=== PATIENT | male | born 1935 | race Caucasian/White ===

== ENCOUNTER 2018-04-06 17:32 | Inpatient (IN) | payer MEDICARE ==
[~2018-04-06] VITALS: Ht 182.9 cm; Wt 86.3 kg
[2018-04-06] MEDS ORDERED: IV NORMAL SALINE 1000ML BAG 1,000 ML IV ONE ×2 (17:45)
[2018-04-06 17:52] LABS: BASO % 1 % (0-3); EOS # 0.1 x10^3/uL (0.0-0.7); EOS % 2 % (0-3); HEMATOCRIT 38.3 % (39.0-53.0); HEMOGLOBIN 13.3 g/dL (13.0-17.5); LYMPH # 0.9 x10^3/uL (1.0-4.8); LYMPH % 24 % (24-48); MEAN CORPUSCULAR HEMOGLOBIN 32 pg (25-35); MEAN CORPUSCULAR HGB CONC 35 g/dL (31-37); MEAN CORPUSCULAR VOLUME 93 fL (79-100); MONO # 0.3 x10^3/uL (0.0-1.1); MONO % 8 % (0-9); NEUT # 2.5 x10^3uL (1.8-7.7); NEUT % 66 % (31-73); PLATELET COUNT 103 x10^3/uL (140-400); RED BLOOD COUNT 4.12 x10^6/uL (4.30-5.70); RED CELL DISTRIBUTION WIDTH 14.6 % (11.5-14.5); WHITE BLOOD COUNT 3.8 x10^3/uL (4.0-11.0)
--- NOTE | 2018-04-06 17:58 | PHYS DOC ---
Adult General Chief Complaint Chief Complaint: HEAT EXPOSURE HPI HPI Patient is a 83 year old male who brought in by EMS because of altered level of consciousness. Patient is a resident of assisted living home and found unresponsive outside with a temperature of 105 with outside temperature of more than 95 decrease. According to assisting living home staff patient was seen 2 hours prior to finding unresponsive. EMS reported that patient had temperature of 104 and had temperature of 101.8 rectally at arrival to ER. Patient was unresponsive per EMS but was able to open his eyes and follows the commands at arrival to ER but unable to talk and give history. Review of Systems Review of Systems Unable to obtain because of medical condition Current Medications Current Medications Current Medications Medications (Trade) Dose Ordered Sig/Cole Start Time Stop Time Status Last Admin Dose Admin Sodium Chloride 1,000 ml @ 1,000 mls/hr 1X ONCE 04/06/18 17:45 04/06/18 18:44 DC 04/06/18 18:42 1,000 MLS/HR Allergies Allergies Allergies Coded Allergies Type Severity Reaction Last Updated Verified No Known Drug Allergies 04/06/18 No Physical Exam Physical Exam Constitutional: Only responded to verbal stimuli, unable to talk, moderate distress, erythematous face and upper chest, febrile HENT: Normocephalic, atraumatic Eyes: Conjunctiva normal, no discharge. [] Neck: Supple Cardiovascular: Tachycardia, no murmur [] Lungs & Thorax: Bilateral breath sounds clear to auscultation [] Abdomen: Bowel sounds normal, soft, no masses, no pulsatile masses. [] Skin: Warm, facial and upper chest erythema with first degree burn Back: No deformity] Extremities: moves all extremities Neurologic: Responded to verbal stimuli only, unable to do neuro exam Psychologic: Unable to obtain Current Patient Data Vital Signs Vital Signs Date Time Temp Pulse Resp B/P (MAP) Pulse Ox O2 Delivery O2 Flow Rate FiO2 04/06/18 18:02 100.2 100.2 04/06/18 17:32 110 28 157/76 (103) 90 Room Air Lab Values Laboratory Tests Test 04/06/18 17:38 04/06/18 17:50 04/06/18 18:02 White Blood Count 3.8 x10^3/uL (4.0-11.0) L Red Blood Count 4.12 x10^6/uL (4.30-5.70) L Hemoglobin 13.3 g/dL (13.0-17.5) Hematocrit 38.3 % (39.0-53.0) L Mean Corpuscular Volume 93 fL (79-100) Mean Corpuscular Hemoglobin 32 pg (25-35) Mean Corpuscular Hemoglobin Concent 35 g/dL (31-37) Red Cell Distribution Width 14.6 % (11.5-14.5) H Platelet Count 103 x10^3/uL (140-400) L Neutrophils (%) (Auto) 66 % (31-73) Lymphocytes (%) (Auto) 24 % (24-48) Monocytes (%) (Auto) 8 % (0-9) Eosinophils (%) (Auto) 2 % (0-3) Basophils (%) (Auto) 1 % (0-3) Neutrophils # (Auto) 2.5 x10^3uL (1.8-7.7) Lymphocytes # (Auto) 0.9 x10^3/uL (1.0-4.8) L Monocytes # (Auto) 0.3 x10^3/uL (0.0-1.1) Eosinophils # (Auto) 0.1 x10^3/uL (0.0-0.7) Basophils # (Auto) 0.0 x10^3/uL (0.0-0.2) Prothrombin Time 15.6 SEC (11.7-14.0) H Prothrombin Time INR 1.3 (0.8-1.1) H PTT 31 SEC (24-38) Sodium Level 143 mmol/L (136-145) Potassium Level 3.4 mmol/L (3.5-5.1) L Chloride Level 108 mmol/L (98-107) H Carbon Dioxide Level 27 mmol/L (21-32) Anion Gap 8 (6-14) Blood Urea Nitrogen 13 mg/dL (8-26) Creatinine 1.4 mg/dL (0.7-1.3) H Estimated GFR (Cockcroft-Gault) 48.5 BUN/Creatinine Ratio 9 (6-20) Glucose Level 159 mg/dL (70-99) H Lactic Acid Level 2.9 mmol/L (0.4-2.0) H Calcium Level 9.9 mg/dL (8.5-10.1) Magnesium Level 1.8 mg/dL (1.8-2.4) Total Bilirubin 0.9 mg/dL (0.2-1.0) Aspartate Amino Transferase (AST) 70 U/L (15-37) H Alanine Aminotransferase (ALT) 36 U/L (16-63) Alkaline Phosphatase 125 U/L (46-116) H Creatine Kinase 230 U/L (39-308) Creatine Kinase MB (Mass) 0.7 ng/mL (0.0-3.6) Creatine Kinase MB Relative Index 0.3 % (0-4) Troponin I Quantitative 0.041 ng/mL (0.000-0.055) UK-Hlb-N-Type Natriuretic Peptide 109 pg/mL (0-449) Total Protein 6.5 g/dL (6.4-8.2) Albumin 2.8 g/dL (3.4-5.0) L Albumin/Globulin Ratio 0.8 (1.0-1.7) L Lipase 146 U/L (73-393) Ammonia 165 mcmol/L (11-34) H Urine Collection Type Unknown Urine Color Aleida Urine Clarity Cloudy Urine pH 6.0 Urine Specific [place] 1.025 Urine Protein 30 mg/dL (NEG-TRACE) Urine Glucose (UA) Negative mg/dL (NEG) Urine Ketones (Stick) Trace mg/dL (NEG) Urine Blood Large (NEG) Urine Nitrite Negative (NEG) Urine Bilirubin Negative (NEG) Urine Urobilinogen Dipstick 2.0 mg/dL (0.2 mg/dL) Urine Leukocyte Esterase Small (NEG) Urine RBC Tntc /HPF (0-2) Urine WBC 1-4 /HPF (0-4) Urine Squamous Epithelial Cells Occ /LPF Urine Bacteria 0 /HPF (0-FEW) Urine Hyaline Casts Moderate /HPF Urine Mucus Marked /LPF Urine Opiates Screen Neg (NEG) Urine Methadone Screen Neg (NEG) Urine Barbiturates Neg (NEG) Urine Phencyclidine Screen Neg (NEG) Urine Amphetamine/Methamphetamine Neg (NEG) Urine Benzodiazepines Screen Neg (NEG) Urine Cocaine Screen Neg (NEG) Urine Cannabinoids Screen Neg (NEG) Urine Ethyl Alcohol Neg (NEG) Laboratory Tests 04/06/18 17:38 Laboratory Tests 04/06/18 17:38 EKG EKG EKG interpreted by me. EKG at 1735 showed sinus tachycardia at rate of 107, left axis deviation, left anterior fascicular block, nonspecific intraventricular block, LVH, no acute ST and T-wave abnormalities[] Radiology/Procedures Radiology/Procedures [] Impressions: Head and cervical spine CTs demonstrate no acute abnormality. Review portable chest x-ray demonstrates no acute process. Course & Med Decision Making Course & Med Decision Making Pertinent Labs and Imaging studies are pending. Patient's care transferred to Dr. Perez at 1800. Dragon Disclaimer Dragon Disclaimer This electronic medical record was generated, in whole or in part, using a voice recognition dictation system. Departure Departure Impression: Primary Impression: Heat exhaustion Disposition: ADMITTED INPATIENT Admitting Physician: Xie. Smiley Condition: IMPROVED Problem Qualifiers Primary Impression: Heat exhaustion Encounter type: initial encounter Qualified Codes: T67.5XXA - Heat exhaustion, unspecified, initial encounter ROYA SHERWOOD MD Apr 06, 2018 17:58 SALIMA PEREZ Jr., DO Apr 06, 2018 19:20
[2018-04-06 18:01] LABS: PROTHROMBIN TIME PATIENT 15.6 SEC (11.7-14.0)
[2018-04-06 18:03] LABS: CALCIUM 9.9 mg/dL (8.5-10.1); CREATININE 1.4 mg/dL (0.7-1.3); GFR 48.5; POTASSIUM 3.4 mmol/L (3.5-5.1)
[2018-04-06 18:09] LABS: ALBUMIN 2.8 g/dL (3.4-5.0); ALBUMIN/GLOBULIN RATIO 0.8 (1.0-1.7); MAGNESIUM 1.8 mg/dL (1.8-2.4); TOTAL BILIRUBIN 0.9 mg/dL (0.2-1.0); TOTAL PROTEIN 6.5 g/dL (6.4-8.2)
[2018-04-06 18:11] LABS: BILIRUBIN,URINE NEGATIVE (NEG); CLARITY,URINE CLOUDY; NITRITE,URINE NEGATIVE (NEG); PROTEIN,URINE 30 mg/dL (NEG-TRACE)
[2018-04-06 18:22] LABS: AMPHETAMINE/METHAMPHETAMINE NEG (NEG); BARBITURATES NEG (NEG); BENZODIAZEPINES NEG (NEG); CANNABINOIDS NEG (NEG); COCAINE NEG (NEG); METHADONE NEG (NEG); OPIATES NEG (NEG); PHENCYCLIDINE NEG (NEG)
[2018-04-06 18:25] LABS: COLOR,URINE AMBER
--- NOTE | 2018-04-06 18:28 | EKG ---
[facility] [address] [place] [address] Test Date: 2018-04-06 Test Time: 17:35:33 Pat Name: PAT SOLO Department: Room: Gender: Male [employer] Technician: : [id number] Requested By: ROYA SHERWOOD Order Number: [id number] Reading MD: Hugo Bateman MD Measurements Intervals [place] Rate: 107 P: -128 NE: 198 QRS: -81 QRSD: 142 T: 71 QT: 350 QTc: 473 Interpretive Statements PROBABLE SINUS TACHYCARDIA LAFB RBBB Electronically Signed On 04-16-2018 11:13:50 CDT by Hugo Bateman MD
[2018-04-06 18:31] LABS: BACTERIA,URINE 0 /HPF (0-FEW); HYALINE CASTS, URINE MODERATE /HPF; RBC,URINE TNTC /HPF (0-2); SQUAMOUS EPITHELIAL CELL,UR OCC /LPF
--- NOTE | 2018-04-06 18:34 | RAD ---
CT scan of the head without contrast 04/06/2018 Clinical History: Patient found outside of care facility. Dementia. Altered level of consciousness. Technique: Unenhanced, contiguous, 5 mm axial sections were obtained through the head. One or more of the following individualized dose reduction techniques were utilized for this study: 1. Automated exposure control. 2. Adjustment of the mA and/or kV according to patient size. 3. Use of iterative reconstruction technique. Findings: No previous studies are available for comparison. There is generalized parenchymal atrophy. Areas of decreased attenuation are seen within the periventricular and subcortical white matter of both cerebral hemispheres consistent with areas of small vessel ischemic disease. No acute parenchymal abnormality is seen. No extra-axial fluid collection is noted. No skull fracture is seen. Impression: No acute intracranial abnormality is seen. CT scan of the cervical spine without contrast 04/06/2018 Clinical history: Neck injury. Technique: Unenhanced, contiguous, 0.625 mm axial sections were obtained through the cervical spine. Axial, coronal and sagittal reconstructed images were obtained. One or more of the following individualized dose reduction techniques were utilized for this study: 1. Automated exposure control. 2. Adjustment of the mA and/or kV according to patient size. 3. Use of iterative reconstruction technique. Findings: Sagittal and coronal reconstructed images demonstrate diffuse osteopenia of the visualized bony structures. Minimal lateral curvature of the cervical spine is seen convex to the left. There is straightening of the normal cervical lordosis. Degenerative changes consisting of marked disc space narrowing, vertebral endplate sclerosis and mild to moderate anterior and posterior vertebral body osteophyte formation are seen throughout the majority of the cervical disc spaces. Atherosclerotic calcifications are seen in the region of the carotid bifurcations. No fracture or subluxation of the cervical vertebra is seen. Degenerative changes are seen involving the uncovertebral and facet joints throughout the cervical disc spaces. Impression: No fracture or subluxation of the cervical vertebra is identified. Electronically signed by: Julien Veloz MD (04/06/2018 6:30 PM) [facility]
--- NOTE | 2018-04-06 20:08 | RAD ---
AP portable chest radiograph 04/06/2018 Clinical History: Heat exposure. An AP erect portable digital radiograph of the chest was obtained. No previous studies are available for comparison. The cardiac silhouette is borderline enlarged. There is left ventricular prominence. The thoracic aorta is mildly tortuous. No acute pulmonary infiltrate is seen. No pleural effusion or pneumothorax is noted. Degenerative changes are seen involving the thoracic spine and both shoulders. IMPRESSION: No acute abnormality is seen. Electronically signed by: Julien Veloz MD (04/06/2018 8:04 PM) [facility]
[2018-04-06] MEDS ORDERED: ACETAMINOPHEN 325 MG TABLET. PO PRN (20:45)
[2018-04-06] MEDS ORDERED: ONDANSETRON PF 4 MG/2 ML VIAL. IV PRN (20:45)
[2018-04-06 21:30] VITALS: BP 148/70
[2018-04-06] MEDS: IV NORMAL SALINE 1000ML BAG 1,000 ML IV SCH (23:12)
[2018-04-06 23:53] VITALS: BP 126/67
[2018-04-07] MEDS ORDERED: FERR325T14 PO (00:07)
[2018-04-07] MEDS ORDERED: DOCU100C28 PO (00:07)
[2018-04-07] MEDS ORDERED: ATOR40TA59 PO (00:07)
[2018-04-07] MEDS ORDERED: MULT-114 PO (00:07)
[2018-04-07] MEDS ORDERED: BISA-42 PO (00:07)
[2018-04-07] MEDS ORDERED: CYAN10005 PO (00:07)
[2018-04-07] MEDS ORDERED: CHOL10003 PO (00:07)
[2018-04-07] MEDS ORDERED: OMEP20CA9 PO (00:07)
[2018-04-07] MEDS ORDERED: CALC-584 PO (00:07)
[2018-04-07] MEDS ORDERED: ASPI-612 PO (00:07)
[2018-04-07] MEDS ORDERED: MAGN250T9 PO (00:07)
[2018-04-07] MEDS ORDERED: POLY17PO29 PO (00:07)
[2018-04-07] MEDS ORDERED: KRIL1CAP31 PO (00:07)
[2018-04-07] MEDS ORDERED: SERT25TA PO (00:34)
[2018-04-07] MEDS ORDERED: MEMA28CA PO (00:34)
[2018-04-07] MEDS ORDERED: [UNRECOGNIZED DRUG - CODE] TP (00:34)
[2018-04-07] MEDS ORDERED: MIRT15TA PO (00:34)
[2018-04-07 03:32] VITALS: BP 143/78
[2018-04-07 04:30] LABS: ALBUMIN 2.3 g/dL (3.4-5.0); ALBUMIN/GLOBULIN RATIO 0.8 (1.0-1.7); CALCIUM 9.1 mg/dL (8.5-10.1); CREATININE 1.1 mg/dL (0.7-1.3); GFR 64.1; POTASSIUM 3.4 mmol/L (3.5-5.1); TOTAL BILIRUBIN 0.7 mg/dL (0.2-1.0); TOTAL PROTEIN 5.2 g/dL (6.4-8.2)
[2018-04-07 05:12] LABS: BASO % 0 % (0-3); EOS % 1 % (0-3); HEMATOCRIT 33.5 % (39.0-53.0); HEMOGLOBIN 11.7 g/dL (13.0-17.5); LYMPH # 1.7 x10^3/uL (1.0-4.8); LYMPH % 29 % (24-48); MEAN CORPUSCULAR HEMOGLOBIN 33 pg (25-35); MEAN CORPUSCULAR HGB CONC 35 g/dL (31-37); MEAN CORPUSCULAR VOLUME 94 fL (79-100); MONO # 0.6 x10^3/uL (0.0-1.1); MONO % 10 % (0-9); NEUT # 3.5 x10^3uL (1.8-7.7); NEUT % 60 % (31-73); PLATELET COUNT 67 x10^3/uL (140-400); RED BLOOD COUNT 3.55 x10^6/uL (4.30-5.70); RED CELL DISTRIBUTION WIDTH 14.6 % (11.5-14.5); WHITE BLOOD COUNT 5.9 x10^3/uL (4.0-11.0)
[2018-04-07] MEDS: IV NORMAL SALINE 1000ML BAG 1,000 ML IV SCH ×2 (05:55→12:43)
[2018-04-07 07:38] VITALS: BP 157/73
--- NOTE | 2018-04-07 08:59 | PDOC1 ---
History and Physical Date of Admission Date of Admission DATE: 04/07/18 TIME: 08:51 Identification/Chief Complaint Chief Complaint somnolent, confused Source Source: Chart review, Unable to obtain due to (dementia, confused) History of Present Illness History of Present Illness Mr. Samayoa, is a 83 year old male admit for new lethargy and altered level of consciousness. came from his residential, and PER ER, found unresponsive outside with a temperature of 105, temp yesterday 95 maybe 2 hours outside in the heat, T 101.8 here in the ER, started to follow commands, could not talk this AM can talk, is confused. Past Medical History Cardiovascular: No pertinent hx CENTRAL NERVOUS SYSTEM: Dementia Social History Smoke: No ALCOHOL: none Current Problem List Problem List Problems Medical Problems: (1) Heat exhaustion Status: Acute Current Medications Current Medications Current Medications Sodium Chloride 1,000 ml @ 1,000 mls/hr 1X ONCE IV Last administered on at 18:42; Start 04/06/18 at 17:45; Stop 04/06/18 at 18:44; Status DC Sodium Chloride 1,000 ml @ 1,000 mls/hr 1X ONCE IV Last administered on at 18:42; Start 04/06/18 at 17:45; Stop 04/06/18 at 18:44; Status DC Ondansetron HCl (Zofran) 4 mg PRN Q8HRS PRN IV NAUSEA/VOMITING; Start 04/06/18 at 20:45; Stop 04/07/18 at 20:44 Sodium Chloride 1,000 ml @ 125 mls/hr Q8H IV Last administered on 04/07/18at 05 :55; Start 04/06/18 at 20:43; Stop 04/07/18 at 20:42 Acetaminophen (Tylenol) 650 mg PRN Q4HRS PRN PO FEVER; Start 04/06/18 at 20:45 ; Stop 04/07/18 at 20:44 Active Scripts Active Reported Namenda Xr (Memantine Hcl) 28 Mg Cap.spr.24 28 Mg PO HS Zoloft (Sertraline Hcl) 25 Mg Tablet 1 Tab PO DAILY Remeron (Mirtazapine) 15 Mg Tablet 0.5 Tab PO QHS Sod Sulfacetamide-Sulfur Lotn (Sulfacetamide Sodium/Sulfur) 25 Gm Lotion 25 Gm TP DAILY apply to dry skin topically daily Multivitamins With Minerals (Multivitamin With Minerals) 1 Each Tablet 1 Each PO Vitamin B-12 (Cyanocobalamin (Vitamin B-12)) 1,000 Mcg Tablet 1 Tab PO DAILY Ferrous Sulfate 325 Mg Tablet 1 Tab PO DAILY Vitamin D3 (Cholecalciferol (Vitamin D3)) 1,000 Unit Tablet 2 Tab PO DAILY Magnesium Oxide 250 Mg Tablet 250 Mg PO Omeprazole 20 Mg Capsule.dr 1 Cap PO DAILY Aspirin Ec (Aspirin) 81 Mg Tablet.dr 1 Tab PO DAILY Docusate Sodium 100 Mg Capsule 1 Cap PO DAILY Calcium 500-Vit D3 600 Tablet (Calcium Carbonate/Vitamin D3) 1 Each Tablet 1 Each PO Miralax (Polyethylene Glycol 3350) 17 Gm Powd.pack 1 Packet PO DAILY Dulcolax (Bisacodyl) 5 Mg Tablet.dr 1 Tab PO UD Krill Oil 500 mg Softgel (Krill/Om-3/Dha/Epa/Phospho/Ast) 1 Each Capsule 1 Each PO Atorvastatin Calcium 40 Mg Tablet 1 Tab PO DAILY Allergies Allergies: Coded Allergies: donepezil (Verified Allergy, Unknown, 04/06/18) ROS General: No: Chills, Night Sweats, Fatigue, Malaise, Appetite, Other PSYCHOLOGICAL ROS: No: Anxiety, Behavioral Disorder, Concentration difficultie , Decreased libido, Depression, Disorientation, Hallucinations, Hostility, Irritablity, Memory difficulties, Mood Swings, Obsessive thoughts, Physical abuse, Sexual abuse, Sleep disturbances, Suicidal ideation, Other Eyes: No Blurry vision, No Decreased vision, No Double vision, No Dry eyes, No Excessive tearing, No Eye Pain, No Itchy Eyes, No Loss of vision, No Photophobia , No Scotomata, No Uses contacts, No Uses glasses, No Other HEENT: No: Heacaches, Visual Changes, Hearing change, Nasal congestion, Nasal discharge, Oral lesions, Sinus pain, Sore Throat, Epistaxis, Sneezing, Snoring, Tinnitus, Vertigo, Vocal changes, Other Respiratory: No: Cough, Hemoptysis, Orthopnea, Pleuritic Pain, Shortness of breath, SOB with excertion, Sputum Changes, Stridor, Tachypnea, Wheezing, Other Cardiovascular: No Chest Pain, No Palpitations, No Orthopnea, No Paroxysmal Noc. Dyspnea, No Edema, No Lt Headedness, No Other Gastrointestinal: Yes Nausea; No Vomiting, No Abdominal Pain, No Diarrhea, No Constipation, No Melena, No Hematochezia, No Other Genitourinary: No Dysuria, No Frequency, No Incontinence, No Hematuria, No Retention, No Discharge, No Urgency, No Pain, No Flank Pain, No Other, No , No , No , No , No , No , No Musculoskeletal: Yes Joint Pain, Yes Joint Stiffness; No Gait Disturbance, No Joint Swelling, No Muscle Pain, No Muscular Weakness , No Pain In:, No Swelling In:, No Other Neurological: No Behavorial Changes, No Bowel/Bladder ControlChng, No Confusion , No Dizziness, No Gait Disturbance, No Headaches, No Impaired Coord/balance, No Memory Loss, No Numbness/Tingling, No Seizures, No Speech Problems, No Tremors, No Visual Changes, No Weakness, No Other Skin: Yes Dry Skin; No Eczema, No Hair Changes, No Lumps, No Mole Changes, No Mottling, No Nail Changes, No Pruritus, No Rash, No Skin Lesion Changes, No Other, No Acne Physical Exam General: Alert, Cooperative, No acute distress, Other (not oriented 08/31) HEENT: EOMI, Mucous membr. moist/pink Lungs: Clear to auscultation Heart: S1S2, no murmurs Abdomen: Normal bowel sounds, Soft Rectal Exam: not examined Extremities: No cyanosis, No edema Skin: No rashes Neuro: Normal speech, Normal tone, Sensation intact Psych/Mental Status: Other (positive affect, poor recall ) Vitals Vitals Vital Signs Date Time Temp Pulse Resp B/P (MAP) Pulse Ox O2 Delivery O2 Flow Rate FiO2 04/07/18 07:38 97.5 101 18 157/73 (101) 98 Room Air 97.5 Labs Labs Laboratory Tests Test 04/06/18 17:38 04/06/18 17:50 04/06/18 18:02 04/07/18 03:50 White Blood Count 3.8 x10^3/uL (4.0-11.0) 5.9 x10^3/uL (4.0-11.0) Red Blood Count 4.12 x10^6/uL (4.30-5.70) 3.55 x10^6/uL (4.30-5.70) Hemoglobin 13.3 g/dL (13.0-17.5) 11.7 g/dL (13.0-17.5) Hematocrit 38.3 % (39.0-53.0) 33.5 % (39.0-53.0) Mean Corpuscular Volume 93 fL (79-100) 94 fL (79-100) Mean Corpuscular Hemoglobin 32 pg (25-35) 33 pg (25-35) Mean Corpuscular Hemoglobin Concent 35 g/dL (31-37) 35 g/dL (31-37) Red Cell Distribution Width 14.6 % (11.5-14.5) 14.6 % (11.5-14.5) Platelet Count 103 x10^3/uL (140-400) 67 x10^3/uL (140-400) Neutrophils (%) (Auto) 66 % (31-73) 60 % (31-73) Lymphocytes (%) (Auto) 24 % (24-48) 29 % (24-48) Monocytes (%) (Auto) 8 % (0-9) 10 % (0-9) Eosinophils (%) (Auto) 2 % (0-3) 1 % (0-3) Basophils (%) (Auto) 1 % (0-3) 0 % (0-3) Neutrophils # (Auto) 2.5 x10^3uL (1.8-7.7) 3.5 x10^3uL (1.8-7.7) Lymphocytes # (Auto) 0.9 x10^3/uL (1.0-4.8) 1.7 x10^3/uL (1.0-4.8) Monocytes # (Auto) 0.3 x10^3/uL (0.0-1.1) 0.6 x10^3/uL (0.0-1.1) Eosinophils # (Auto) 0.1 x10^3/uL (0.0-0.7) 0.0 x10^3/uL (0.0-0.7) Basophils # (Auto) 0.0 x10^3/uL (0.0-0.2) 0.0 x10^3/uL (0.0-0.2) Prothrombin Time 15.6 SEC (11.7-14.0) Prothromb Time International Ratio 1.3 (0.8-1.1) Activated Partial Thromboplast Time 31 SEC (24-38) Sodium Level 143 mmol/L (136-145) 145 mmol/L (136-145) Potassium Level 3.4 mmol/L (3.5-5.1) 3.4 mmol/L (3.5-5.1) Chloride Level 108 mmol/L (98-107) 112 mmol/L (98-107) Carbon Dioxide Level 27 mmol/L (21-32) 29 mmol/L (21-32) Anion Gap 8 (6-14) 4 (6-14) Blood Urea Nitrogen 13 mg/dL (8-26) 14 mg/dL (8-26) Creatinine 1.4 mg/dL (0.7-1.3) 1.1 mg/dL (0.7-1.3) Estimated GFR (Cockcroft-Gault) 48.5 64.1 BUN/Creatinine Ratio 9 (6-20) 13 (6-20) Glucose Level 159 mg/dL (70-99) 114 mg/dL (70-99) Lactic Acid Level 2.9 mmol/L (0.4-2.0) 1.3 mmol/L (0.4-2.0) Calcium Level 9.9 mg/dL (8.5-10.1) 9.1 mg/dL (8.5-10.1) Magnesium Level 1.8 mg/dL (1.8-2.4) Total Bilirubin 0.9 mg/dL (0.2-1.0) 0.7 mg/dL (0.2-1.0) Aspartate Amino Transf (AST/SGOT) 70 U/L (15-37) 49 U/L (15-37) Alanine Aminotransferase (ALT/SGPT) 36 U/L (16-63) 29 U/L (16-63) Alkaline Phosphatase 125 U/L (46-116) 104 U/L (46-116) Creatine Kinase 230 U/L (39-308) 180 U/L (39-308) Creatine Kinase MB (Mass) 0.7 ng/mL (0.0-3.6) Creatine Kinase MB Relative Index 0.3 % (0-4) Troponin I Quantitative 0.041 ng/mL (0.000-0.055) 0.062 ng/mL (0.000-0.055) OB-Sxt-P-Type Natriuretic Peptide 109 pg/mL (0-449) Total Protein 6.5 g/dL (6.4-8.2) 5.2 g/dL (6.4-8.2) Albumin 2.8 g/dL (3.4-5.0) 2.3 g/dL (3.4-5.0) Albumin/Globulin Ratio 0.8 (1.0-1.7) 0.8 (1.0-1.7) Lipase 146 U/L (73-393) Ammonia 165 mcmol/L (11-34) Urine Collection Type Unknown Urine Color Aleida Urine Clarity Cloudy Urine pH 6.0 Urine Specific [place] 1.025 Urine Protein 30 mg/dL (NEG-TRACE) Urine Glucose (UA) Negative mg/dL (NEG) Urine Ketones (Stick) Trace mg/dL (NEG) Urine Blood Large (NEG) Urine Nitrite Negative (NEG) Urine Bilirubin Negative (NEG) Urine Urobilinogen Dipstick 2.0 mg/dL (0.2 mg/dL) Urine Leukocyte Esterase Small (NEG) Urine RBC Tntc /HPF (0-2) Urine WBC 1-4 /HPF (0-4) Urine Squamous Epithelial Cells Occ /LPF Urine Bacteria 0 /HPF (0-FEW) Urine Hyaline Casts Moderate /HPF Urine Mucus Marked /LPF Urine Opiates Screen Neg (NEG) Urine Methadone Screen Neg (NEG) Urine Barbiturates Neg (NEG) Urine Phencyclidine Screen Neg (NEG) Urine Amphetamine/Methamphetamine Neg (NEG) Urine Benzodiazepines Screen Neg (NEG) Urine Cocaine Screen Neg (NEG) Urine Cannabinoids Screen Neg (NEG) Urine Ethyl Alcohol Neg (NEG) Laboratory Tests Test 04/06/18 17:38 04/06/18 17:50 04/06/18 18:02 04/07/18 03:50 White Blood Count 3.8 x10^3/uL (4.0-11.0) 5.9 x10^3/uL (4.0-11.0) Red Blood Count 4.12 x10^6/uL (4.30-5.70) 3.55 x10^6/uL (4.30-5.70) Hemoglobin 13.3 g/dL (13.0-17.5) 11.7 g/dL (13.0-17.5) Hematocrit 38.3 % (39.0-53.0) 33.5 % (39.0-53.0) Mean Corpuscular Volume 93 fL (79-100) 94 fL (79-100) Mean Corpuscular Hemoglobin 32 pg (25-35) 33 pg (25-35) Mean Corpuscular Hemoglobin Concent 35 g/dL (31-37) 35 g/dL (31-37) Red Cell Distribution Width 14.6 % (11.5-14.5) 14.6 % (11.5-14.5) Platelet Count 103 x10^3/uL (140-400) 67 x10^3/uL (140-400) Neutrophils (%) (Auto) 66 % (31-73) 60 % (31-73) Lymphocytes (%) (Auto) 24 % (24-48) 29 % (24-48) Monocytes (%) (Auto) 8 % (0-9) 10 % (0-9) Eosinophils (%) (Auto) 2 % (0-3) 1 % (0-3) Basophils (%) (Auto) 1 % (0-3) 0 % (0-3) Neutrophils # (Auto) 2.5 x10^3uL (1.8-7.7) 3.5 x10^3uL (1.8-7.7) Lymphocytes # (Auto) 0.9 x10^3/uL (1.0-4.8) 1.7 x10^3/uL (1.0-4.8) Monocytes # (Auto) 0.3 x10^3/uL (0.0-1.1) 0.6 x10^3/uL (0.0-1.1) Eosinophils # (Auto) 0.1 x10^3/uL (0.0-0.7) 0.0 x10^3/uL (0.0-0.7) Basophils # (Auto) 0.0 x10^3/uL (0.0-0.2) 0.0 x10^3/uL (0.0-0.2) Prothrombin Time 15.6 SEC (11.7-14.0) Prothromb Time International Ratio 1.3 (0.8-1.1) Activated Partial Thromboplast Time 31 SEC (24-38) Sodium Level 143 mmol/L (136-145) 145 mmol/L (136-145) Potassium Level 3.4 mmol/L (3.5-5.1) 3.4 mmol/L (3.5-5.1) Chloride Level 108 mmol/L (98-107) 112 mmol/L (98-107) Carbon Dioxide Level 27 mmol/L (21-32) 29 mmol/L (21-32) Anion Gap 8 (6-14) 4 (6-14) Blood Urea Nitrogen 13 mg/dL (8-26) 14 mg/dL (8-26) Creatinine 1.4 mg/dL (0.7-1.3) 1.1 mg/dL (0.7-1.3) Estimated GFR (Cockcroft-Gault) 48.5 64.1 BUN/Creatinine Ratio 9 (6-20) 13 (6-20) Glucose Level 159 mg/dL (70-99) 114 mg/dL (70-99) Lactic Acid Level 2.9 mmol/L (0.4-2.0) 1.3 mmol/L (0.4-2.0) Calcium Level 9.9 mg/dL (8.5-10.1) 9.1 mg/dL (8.5-10.1) Magnesium Level 1.8 mg/dL (1.8-2.4) Total Bilirubin 0.9 mg/dL (0.2-1.0) 0.7 mg/dL (0.2-1.0) Aspartate Amino Transf (AST/SGOT) 70 U/L (15-37) 49 U/L (15-37) Alanine Aminotransferase (ALT/SGPT) 36 U/L (16-63) 29 U/L (16-63) Alkaline Phosphatase 125 U/L (46-116) 104 U/L (46-116) Creatine Kinase 230 U/L (39-308) 180 U/L (39-308) Creatine Kinase MB (Mass) 0.7 ng/mL (0.0-3.6) Creatine Kinase MB Relative Index 0.3 % (0-4) Troponin I Quantitative 0.041 ng/mL (0.000-0.055) 0.062 ng/mL (0.000-0.055) NT-Cty-W-Type Natriuretic Peptide 109 pg/mL (0-449) Total Protein 6.5 g/dL (6.4-8.2) 5.2 g/dL (6.4-8.2) Albumin 2.8 g/dL (3.4-5.0) 2.3 g/dL (3.4-5.0) Albumin/Globulin Ratio 0.8 (1.0-1.7) 0.8 (1.0-1.7) Lipase 146 U/L (73-393) Ammonia 165 mcmol/L (11-34) Urine Collection Type Unknown Urine Color [place] Urine Clarity Cloudy Urine pH 6.0 Urine Specific [place] 1.025 Urine Protein 30 mg/dL (NEG-TRACE) Urine Glucose (UA) Negative mg/dL (NEG) Urine Ketones (Stick) Trace mg/dL (NEG) Urine Blood Large (NEG) Urine Nitrite Negative (NEG) Urine Bilirubin Negative (NEG) Urine Urobilinogen Dipstick 2.0 mg/dL (0.2 mg/dL) Urine Leukocyte Esterase Small (NEG) Urine RBC Tntc /HPF (0-2) Urine WBC 1-4 /HPF (0-4) Urine Squamous Epithelial Cells Occ /LPF Urine Bacteria 0 /HPF (0-FEW) Urine Hyaline Casts Moderate /HPF Urine Mucus Marked /LPF Urine Opiates Screen Neg (NEG) Urine Methadone Screen Neg (NEG) Urine Barbiturates Neg (NEG) Urine Phencyclidine Screen Neg (NEG) Urine Amphetamine/Methamphetamine Neg (NEG) Urine Benzodiazepines Screen Neg (NEG) Urine Cocaine Screen Neg (NEG) Urine Cannabinoids Screen Neg (NEG) Urine Ethyl Alcohol Neg (NEG) VTE Prophylaxis Ordered VTE Prophylaxis Devices: No VTE Pharmacological Prophylaxi: Yes Assessment/Plan Assessment/Plan acute metabolic encephalopathy, on chronic dementia heat stroke, fever, was outside in 95 degree heat for 2 hours yesterday elevated ammonia, give lactulos, check liver US acute vasomotor nephropathy with dehydration, cont IV fluid hypokalemia PT and ot admit ANETTE BUTLER MD Apr 07, 2018 08:59
[2018-04-07] MEDS ORDERED: POTASSIUM CHLORIDE 20 MEQ TABLET.ER. PO ONE (09:00)
[2018-04-07] MEDS ORDERED: SULFACETAMIDE SODIUM TP SCH (09:00)
[2018-04-07] MEDS ORDERED: PHYTONADIONE 10 MG/ML AMPUL. SQ ONE (09:00)
[2018-04-07] MEDS: ENOXAPARIN 40 MG/0.4 ML SYRINGE. SQ SCH (09:00)
[2018-04-07] MEDS ORDERED: SULFUR TP SCH (09:00)
[2018-04-07] MEDS: POLYETHYLENE GLYCOL 3350 17 GM PACKET. PO SCH (10:00)
[2018-04-07] MEDS: LACTULOSE 20 GM/30 ML SOLUTION. PO SCH ×2 (10:30→20:35)
[2018-04-07] MEDS: DOCUSATE SODIUM 100 MG CAPSULE. PO SCH (10:36)
[2018-04-07] MEDS: CYANOCOBALAMIN (VITAMIN B-12) 1,000 MCG TABLET. PO SCH (10:37)
[2018-04-07] MEDS: BISACODYL 5 MG TABLET.DR. PO SCH (10:37)
[2018-04-07] MEDS: ASPIRIN ENTERIC COATED 81 MG TABLET.DR. PO SCH (10:37)
[2018-04-07] MEDS: FERROUS SULFATE 325 MG TABLET. PO SCH (10:37)
[2018-04-07] MEDS: CHOLECALCIFEROL (VITAMIN D3) 1,000 UNIT TABLET PO SCH (10:38)
[2018-04-07] MEDS: SERTRALINE 25 MG TABLET. PO SCH (10:38)
[2018-04-07] MEDS: PANTOPRAZOLE 40 MG TABLET.DR. PO SCH (10:47)
[2018-04-07] MEDS: MEMANTINE 10 MG TABLET. PO SCH ×2 (10:47→20:36)
[2018-04-07 11:01] VITALS: BP 128/67
--- NOTE | 2018-04-07 14:27 | RAD ---
Right upper quadrant abdominal ultrasound, 04/07/2018: HISTORY: Elevated ammonia level The gallbladder is surgically absent. The common hepatic duct measures 6 mm. There is no evidence of a hepatic mass or bile duct dilatation. The pancreas was obscured by overlying bowel. Limited views of the right kidney show no abnormality. IMPRESSION: 1. Status post cholecystectomy. 2. No acute abnormality is detected. Electronically signed by: Sha Alba MD (04/07/2018 2:23 PM) [facility] [place]
--- NOTE | 2018-04-07 15:03 | PDOC2 ---
CONSULT Date of Consult Date of Consult DATE: 04/07/18 TIME: 14:51 Reason for Consult Reason for Consult: elevated ammonia History of Present Illness Reason for Visit: 83 yo male, with NO prior liver history, including no significant alcohol use in past (per daughter) who presented with heat exposure - wandered onto patio at assisted living facility and became more confused- has baseline dementia but is functional. Had colonoscopy with Dr. Cantrell- one polyp removed- but NO history of chronic liver disease, no hx of hepatitis, etc. Mild transaminase elevation noted- could reflect heat and dehydration or could reflect subtle chronic liver disease, previously unrecognized. No chronic n/v but does have mild constipation. Past Medical History Cardiovascular: No pertinent hx, HTN, Hyperlipidemia CENTRAL NERVOUS SYSTEM: Dementia Past Surgical History Past Surgical History: Appendectomy, Cholecystectomy Social History No ALCOHOL: none Current Problem List Problem List Problems Medical Problems: (1) Heat exhaustion Status: Acute Current Medications Current Medications Current Medications Sodium Chloride 1,000 ml @ 1,000 mls/hr 1X ONCE IV Last administered on at 18:42; Start 04/06/18 at 17:45; Stop 04/06/18 at 18:44; Status DC Sodium Chloride 1,000 ml @ 1,000 mls/hr 1X ONCE IV Last administered on at 18:42; Start 04/06/18 at 17:45; Stop 04/06/18 at 18:44; Status DC Ondansetron HCl (Zofran) 4 mg PRN Q8HRS PRN IV NAUSEA/VOMITING; Start 04/06/18 at 20:45; Stop 04/07/18 at 20:44 Sodium Chloride 1,000 ml @ 125 mls/hr Q8H IV Last administered on 04/07/18at 12 :43; Start 04/06/18 at 20:43; Stop 04/07/18 at 20:42 Acetaminophen (Tylenol) 650 mg PRN Q4HRS PRN PO FEVER; Start 04/06/18 at 20:45 ; Stop 04/07/18 at 20:44 Lactulose (Lactulose) 20 gm BID PO Last administered on 04/07/18at 10:30; Start 04/07/18 at 09:00 Enoxaparin Sodium (Lovenox Per Pharmacy Prophylaxis Dosing) 1 each PRN DAILY PRN MC SEE COMMENTS; Start 04/07/18 at 09:00 Phytonadione (Vitamin K Ampule) 5 mg 1X ONCE SQ Last administered on at 10:31; Start 04/07/18 at 09:00; Stop 04/07/18 at 09:01; Status DC Potassium Chloride (Klor-Con) 40 meq 1X ONCE PO Last administered on at 10:30; Start 04/07/18 at 09:00; Stop 04/07/18 at 09:01; Status DC Enoxaparin Sodium (Lovenox 40mg Syringe) 40 mg Q24H SQ ; Start 04/07/18 at 09:00 Aspirin (Ecotrin) 81 mg DAILY PO Last administered on 04/07/18at 10:37; Start at 09:00 Atorvastatin Calcium (Lipitor) 40 mg QHS PO ; Start 04/07/18 at 21:00 Bisacodyl (Dulcolax Tab) 5 mg DAILY PO Last administered on 04/07/18at 10:37; Start 04/07/18 at 09:00 Vitamin D (Vitamin D3) 2,000 unit DAILY PO Last administered on 04/07/18at 10:38 ; Start 04/07/18 at 09:00 Cyanocobalamin (Vitamin B-12) 1,000 mcg DAILY PO Last administered on at 10:37; Start 04/07/18 at 09:00 Docusate Sodium (Colace) 100 mg DAILY PO Last administered on 04/07/18at 10:36; Start 04/07/18 at 09:00 Ferrous Sulfate (Feosol) 325 mg DAILY PO Last administered on 04/07/18at 10:37; Start 04/07/18 at 09:00 Memantine (Namenda) 10 mg BID PO Last administered on 04/07/18at 10:47; Start at 10:00 Mirtazapine (Remeron) 7.5 mg QHS PO ; Start 04/07/18 at 21:00 Pantoprazole Sodium (Protonix) 40 mg DAILYAC PO Last administered on 04/07/18at 10:47; Start 04/07/18 at 10:00 Polyethylene Glycol (miraLAX PACKET) 17 gm DAILY PO ; Start 04/07/18 at 10:00 Sertraline HCl (Zoloft) 25 mg DAILY PO Last administered on 04/07/18at 10:38; Start 04/07/18 at 10:00 Non-Formulary Medication (Sulfacetamide Sodium/Sulfur (Sod Sulfacetamide-Sulfur Lotn)) 25 gm DAILY TP ; Start 04/07/18 at 09:00; Status UNV Active Scripts Active Reported Namenda Xr (Memantine Hcl) 28 Mg Cap.spr.24 28 Mg PO HS Zoloft (Sertraline Hcl) 25 Mg Tablet 1 Tab PO DAILY Remeron (Mirtazapine) 15 Mg Tablet 0.5 Tab PO QHS Sod Sulfacetamide-Sulfur Lotn (Sulfacetamide Sodium/Sulfur) 25 Gm Lotion 25 Gm TP DAILY apply to dry skin topically daily Multivitamins With Minerals (Multivitamin With Minerals) 1 Each Tablet 1 Each PO Vitamin B-12 (Cyanocobalamin (Vitamin B-12)) 1,000 Mcg Tablet 1 Tab PO DAILY Ferrous Sulfate 325 Mg Tablet 1 Tab PO DAILY Vitamin D3 (Cholecalciferol (Vitamin D3)) 1,000 Unit Tablet 2 Tab PO DAILY Magnesium Oxide 250 Mg Tablet 250 Mg PO Omeprazole 20 Mg Capsule.dr 1 Cap PO DAILY Aspirin Ec (Aspirin) 81 Mg Tablet.dr 1 Tab PO DAILY Docusate Sodium 100 Mg Capsule 1 Cap PO DAILY Calcium 500-Vit D3 600 Tablet (Calcium Carbonate/Vitamin D3) 1 Each Tablet 1 Each PO Miralax (Polyethylene Glycol 3350) 17 Gm Powd.pack 1 Packet PO DAILY Dulcolax (Bisacodyl) 5 Mg Tablet.dr 1 Tab PO UD Krill Oil 500 mg Softgel (Krill/Om-3/Dha/Epa/Phospho/Ast) 1 Each Capsule 1 Each PO Atorvastatin Calcium 40 Mg Tablet 1 Tab PO DAILY Allergies Allergies: Coded Allergies: donepezil (Verified Allergy, Unknown, 04/06/18) ROS PSYCHOLOGICAL ROS: YES: Memory difficulties Skin: Yes Dry Skin, Yes Eczema, Yes Skin Lesion Changes Physical Exam General: Alert HEENT: PERRLA Lungs: Clear to auscultation Heart: Regular rate, Normal S1, Normal S2 Abdomen: Normal bowel sounds, Soft, No tenderness, No hepatosplenomegaly, No masses Skin: Other (chronic eczema/ scaling) Vitals VITALS Vital Signs Date Time Temp Pulse Resp B/P (MAP) Pulse Ox O2 Delivery O2 Flow Rate FiO2 04/07/18 11:01 98.1 89 19 128/67 (87) 98 Room Air 98.1 Labs Labs Laboratory Tests Test 04/06/18 17:38 04/06/18 17:50 04/06/18 18:02 04/07/18 03:50 White Blood Count 3.8 x10^3/uL (4.0-11.0) 5.9 x10^3/uL (4.0-11.0) Red Blood Count 4.12 x10^6/uL (4.30-5.70) 3.55 x10^6/uL (4.30-5.70) Hemoglobin 13.3 g/dL (13.0-17.5) 11.7 g/dL (13.0-17.5) Hematocrit 38.3 % (39.0-53.0) 33.5 % (39.0-53.0) Mean Corpuscular Volume 93 fL (79-100) 94 fL (79-100) Mean Corpuscular Hemoglobin 32 pg (25-35) 33 pg (25-35) Mean Corpuscular Hemoglobin Concent 35 g/dL (31-37) 35 g/dL (31-37) Red Cell Distribution Width 14.6 % (11.5-14.5) 14.6 % (11.5-14.5) Platelet Count 103 x10^3/uL (140-400) 67 x10^3/uL (140-400) Neutrophils (%) (Auto) 66 % (31-73) 60 % (31-73) Lymphocytes (%) (Auto) 24 % (24-48) 29 % (24-48) Monocytes (%) (Auto) 8 % (0-9) 10 % (0-9) Eosinophils (%) (Auto) 2 % (0-3) 1 % (0-3) Basophils (%) (Auto) 1 % (0-3) 0 % (0-3) Neutrophils # (Auto) 2.5 x10^3uL (1.8-7.7) 3.5 x10^3uL (1.8-7.7) Lymphocytes # (Auto) 0.9 x10^3/uL (1.0-4.8) 1.7 x10^3/uL (1.0-4.8) Monocytes # (Auto) 0.3 x10^3/uL (0.0-1.1) 0.6 x10^3/uL (0.0-1.1) Eosinophils # (Auto) 0.1 x10^3/uL (0.0-0.7) 0.0 x10^3/uL (0.0-0.7) Basophils # (Auto) 0.0 x10^3/uL (0.0-0.2) 0.0 x10^3/uL (0.0-0.2) Prothrombin Time 15.6 SEC (11.7-14.0) Prothromb Time International Ratio 1.3 (0.8-1.1) Activated Partial Thromboplast Time 31 SEC (24-38) Sodium Level 143 mmol/L (136-145) 145 mmol/L (136-145) Potassium Level 3.4 mmol/L (3.5-5.1) 3.4 mmol/L (3.5-5.1) Chloride Level 108 mmol/L (98-107) 112 mmol/L (98-107) Carbon Dioxide Level 27 mmol/L (21-32) 29 mmol/L (21-32) Anion Gap 8 (6-14) 4 (6-14) Blood Urea Nitrogen 13 mg/dL (8-26) 14 mg/dL (8-26) Creatinine 1.4 mg/dL (0.7-1.3) 1.1 mg/dL (0.7-1.3) Estimated GFR (Cockcroft-Gault) 48.5 64.1 BUN/Creatinine Ratio 9 (6-20) 13 (6-20) Glucose Level 159 mg/dL (70-99) 114 mg/dL (70-99) Lactic Acid Level 2.9 mmol/L (0.4-2.0) 1.3 mmol/L (0.4-2.0) Calcium Level 9.9 mg/dL (8.5-10.1) 9.1 mg/dL (8.5-10.1) Magnesium Level 1.8 mg/dL (1.8-2.4) Total Bilirubin 0.9 mg/dL (0.2-1.0) 0.7 mg/dL (0.2-1.0) Aspartate Amino Transf (AST/SGOT) 70 U/L (15-37) 49 U/L (15-37) Alanine Aminotransferase (ALT/SGPT) 36 U/L (16-63) 29 U/L (16-63) Alkaline Phosphatase 125 U/L (46-116) 104 U/L (46-116) Creatine Kinase 230 U/L (39-308) 180 U/L (39-308) Creatine Kinase MB (Mass) 0.7 ng/mL (0.0-3.6) Creatine Kinase MB Relative Index 0.3 % (0-4) Troponin I Quantitative 0.041 ng/mL (0.000-0.055) 0.062 ng/mL (0.000-0.055) IF-Mpz-D-Type Natriuretic Peptide 109 pg/mL (0-449) Total Protein 6.5 g/dL (6.4-8.2) 5.2 g/dL (6.4-8.2) Albumin 2.8 g/dL (3.4-5.0) 2.3 g/dL (3.4-5.0) Albumin/Globulin Ratio 0.8 (1.0-1.7) 0.8 (1.0-1.7) Lipase 146 U/L (73-393) Ammonia 165 mcmol/L (11-34) Urine Collection Type Unknown Urine Color [place] Urine Clarity Cloudy Urine pH 6.0 Urine Specific [place] 1.025 Urine Protein 30 mg/dL (NEG-TRACE) Urine Glucose (UA) Negative mg/dL (NEG) Urine Ketones (Stick) Trace mg/dL (NEG) Urine Blood Large (NEG) Urine Nitrite Negative (NEG) Urine Bilirubin Negative (NEG) Urine Urobilinogen Dipstick 2.0 mg/dL (0.2 mg/dL) Urine Leukocyte Esterase Small (NEG) Urine RBC Tntc /HPF (0-2) Urine WBC 1-4 /HPF (0-4) Urine Squamous Epithelial Cells Occ /LPF Urine Bacteria 0 /HPF (0-FEW) Urine Hyaline Casts Moderate /HPF Urine Mucus Marked /LPF Urine Opiates Screen Neg (NEG) Urine Methadone Screen Neg (NEG) Urine Barbiturates Neg (NEG) Urine Phencyclidine Screen Neg (NEG) Urine Amphetamine/Methamphetamine Neg (NEG) Urine Benzodiazepines Screen Neg (NEG) Urine Cocaine Screen Neg (NEG) Urine Cannabinoids Screen Neg (NEG) Urine Ethyl Alcohol Neg (NEG) Laboratory Tests Test 04/06/18 17:38 04/06/18 17:50 04/06/18 18:02 04/07/18 03:50 White Blood Count 3.8 x10^3/uL (4.0-11.0) 5.9 x10^3/uL (4.0-11.0) Red Blood Count 4.12 x10^6/uL (4.30-5.70) 3.55 x10^6/uL (4.30-5.70) Hemoglobin 13.3 g/dL (13.0-17.5) 11.7 g/dL (13.0-17.5) Hematocrit 38.3 % (39.0-53.0) 33.5 % (39.0-53.0) Mean Corpuscular Volume 93 fL (79-100) 94 fL (79-100) Mean Corpuscular Hemoglobin 32 pg (25-35) 33 pg (25-35) Mean Corpuscular Hemoglobin Concent 35 g/dL (31-37) 35 g/dL (31-37) Red Cell Distribution Width 14.6 % (11.5-14.5) 14.6 % (11.5-14.5) Platelet Count 103 x10^3/uL (140-400) 67 x10^3/uL (140-400) Neutrophils (%) (Auto) 66 % (31-73) 60 % (31-73) Lymphocytes (%) (Auto) 24 % (24-48) 29 % (24-48) Monocytes (%) (Auto) 8 % (0-9) 10 % (0-9) Eosinophils (%) (Auto) 2 % (0-3) 1 % (0-3) Basophils (%) (Auto) 1 % (0-3) 0 % (0-3) Neutrophils # (Auto) 2.5 x10^3uL (1.8-7.7) 3.5 x10^3uL (1.8-7.7) Lymphocytes # (Auto) 0.9 x10^3/uL (1.0-4.8) 1.7 x10^3/uL (1.0-4.8) Monocytes # (Auto) 0.3 x10^3/uL (0.0-1.1) 0.6 x10^3/uL (0.0-1.1) Eosinophils # (Auto) 0.1 x10^3/uL (0.0-0.7) 0.0 x10^3/uL (0.0-0.7) Basophils # (Auto) 0.0 x10^3/uL (0.0-0.2) 0.0 x10^3/uL (0.0-0.2) Prothrombin Time 15.6 SEC (11.7-14.0) Prothromb Time International Ratio 1.3 (0.8-1.1) Activated Partial Thromboplast Time 31 SEC (24-38) Sodium Level 143 mmol/L (136-145) 145 mmol/L (136-145) Potassium Level 3.4 mmol/L (3.5-5.1) 3.4 mmol/L (3.5-5.1) Chloride Level 108 mmol/L (98-107) 112 mmol/L (98-107) Carbon Dioxide Level 27 mmol/L (21-32) 29 mmol/L (21-32) Anion Gap 8 (6-14) 4 (6-14) Blood Urea Nitrogen 13 mg/dL (8-26) 14 mg/dL (8-26) Creatinine 1.4 mg/dL (0.7-1.3) 1.1 mg/dL (0.7-1.3) Estimated GFR (Cockcroft-Gault) 48.5 64.1 BUN/Creatinine Ratio 9 (6-20) 13 (6-20) Glucose Level 159 mg/dL (70-99) 114 mg/dL (70-99) Lactic Acid Level 2.9 mmol/L (0.4-2.0) 1.3 mmol/L (0.4-2.0) Calcium Level 9.9 mg/dL (8.5-10.1) 9.1 mg/dL (8.5-10.1) Magnesium Level 1.8 mg/dL (1.8-2.4) Total Bilirubin 0.9 mg/dL (0.2-1.0) 0.7 mg/dL (0.2-1.0) Aspartate Amino Transf (AST/SGOT) 70 U/L (15-37) 49 U/L (15-37) Alanine Aminotransferase (ALT/SGPT) 36 U/L (16-63) 29 U/L (16-63) Alkaline Phosphatase 125 U/L (46-116) 104 U/L (46-116) Creatine Kinase 230 U/L (39-308) 180 U/L (39-308) Creatine Kinase MB (Mass) 0.7 ng/mL (0.0-3.6) Creatine Kinase MB Relative Index 0.3 % (0-4) Troponin I Quantitative 0.041 ng/mL (0.000-0.055) 0.062 ng/mL (0.000-0.055) BQ-Wdp-W-Type Natriuretic Peptide 109 pg/mL (0-449) Total Protein 6.5 g/dL (6.4-8.2) 5.2 g/dL (6.4-8.2) Albumin 2.8 g/dL (3.4-5.0) 2.3 g/dL (3.4-5.0) Albumin/Globulin Ratio 0.8 (1.0-1.7) 0.8 (1.0-1.7) Lipase 146 U/L (73-393) Ammonia 165 mcmol/L (11-34) Urine Collection Type Unknown Urine Color [place] Urine Clarity Cloudy Urine pH 6.0 Urine Specific [place] 1.025 Urine Protein 30 mg/dL (NEG-TRACE) Urine Glucose (UA) Negative mg/dL (NEG) Urine Ketones (Stick) Trace mg/dL (NEG) Urine Blood Large (NEG) Urine Nitrite Negative (NEG) Urine Bilirubin Negative (NEG) Urine Urobilinogen Dipstick 2.0 mg/dL (0.2 mg/dL) Urine Leukocyte Esterase Small (NEG) Urine RBC Tntc /HPF (0-2) Urine WBC 1-4 /HPF (0-4) Urine Squamous Epithelial Cells Occ /LPF Urine Bacteria 0 /HPF (0-FEW) Urine Hyaline Casts Moderate /HPF Urine Mucus Marked /LPF Urine Opiates Screen Neg (NEG) Urine Methadone Screen Neg (NEG) Urine Barbiturates Neg (NEG) Urine Phencyclidine Screen Neg (NEG) Urine Amphetamine/Methamphetamine Neg (NEG) Urine Benzodiazepines Screen Neg (NEG) Urine Cocaine Screen Neg (NEG) Urine Cannabinoids Screen Neg (NEG) Urine Ethyl Alcohol Neg (NEG) Images Images US liver- negative Assessment/Plan Assessment/Plan Confusion- elevated ammonia- no prior history of liver disease- no risk factors are known- but with skin disease, wonder about chronic med exposure in past ( including MTX)- but none is reported. Elevated ammonia is NOT specific for cirrhosis- other clues for unrecognized liver disease were low platelets, mild elevation in transaminases - but normal bilirbin and INR- Plan- agree with lactulose- particularly since he seems to have chronic constipation recheck ammonia level will check hepatitis screen for completeness ok to resume diet and d/c when clinically stable SAI TONEY MD Apr 07, 2018 15:03
[2018-04-07 15:20] VITALS: BP 130/72
[2018-04-07 19:10] VITALS: BP 137/60
[2018-04-07] MEDS: MIRTAZAPINE 7.5 MG TABLET. PO SCH (20:36)
[2018-04-07] MEDS: ATORVASTATIN CALCIUM 40 MG TABLET. PO SCH (20:36)
[2018-04-07 23:54] VITALS: BP 136/74
[2018-04-08 03:15] VITALS: BP 147/72
[2018-04-08 05:41] LABS: BASO % 0 % (0-3); EOS # 0.1 x10^3/uL (0.0-0.7); EOS % 2 % (0-3); LYMPH # 1.8 x10^3/uL (1.0-4.8); LYMPH % 43 % (24-48); MEAN CORPUSCULAR HEMOGLOBIN 33 pg (25-35); MEAN CORPUSCULAR HGB CONC 34 g/dL (31-37); MEAN CORPUSCULAR VOLUME 95 fL (79-100); MONO # 0.4 x10^3/uL (0.0-1.1); MONO % 11 % (0-9); NEUT # 1.8 x10^3uL (1.8-7.7); NEUT % 44 % (31-73); PLATELET COUNT 60 x10^3/uL (140-400); RED BLOOD COUNT 3.38 x10^6/uL (4.30-5.70); RED CELL DISTRIBUTION WIDTH 14.8 % (11.5-14.5); WHITE BLOOD COUNT 4.1 x10^3/uL (4.0-11.0)
[2018-04-08 05:53] LABS: PROTHROMBIN TIME PATIENT 16.3 SEC (11.7-14.0)
[2018-04-08 06:07] LABS: ALBUMIN 2.1 g/dL (3.4-5.0); ALBUMIN/GLOBULIN RATIO 0.7 (1.0-1.7); CALCIUM 8.4 mg/dL (8.5-10.1); GFR 71.5; POTASSIUM 3.2 mmol/L (3.5-5.1); TOTAL BILIRUBIN 0.6 mg/dL (0.2-1.0); TOTAL PROTEIN 5.1 g/dL (6.4-8.2)
[2018-04-08 07:00] VITALS: BP 155/70
[2018-04-08] MEDS: ENOXAPARIN 40 MG/0.4 ML SYRINGE. SQ SCH (09:00)
[2018-04-08 11:00] VITALS: BP 140/78
[2018-04-08] MEDS: CYANOCOBALAMIN (VITAMIN B-12) 1,000 MCG TABLET. PO SCH (11:18)
[2018-04-08] MEDS: SERTRALINE 25 MG TABLET. PO SCH (11:18)
[2018-04-08] MEDS: BISACODYL 5 MG TABLET.DR. PO SCH (11:19)
[2018-04-08] MEDS: CHOLECALCIFEROL (VITAMIN D3) 1,000 UNIT TABLET PO SCH (11:19)
[2018-04-08] MEDS: DOCUSATE SODIUM 100 MG CAPSULE. PO SCH (11:19)
[2018-04-08] MEDS: ASPIRIN ENTERIC COATED 81 MG TABLET.DR. PO SCH (11:19)
[2018-04-08] MEDS: LACTULOSE 20 GM/30 ML SOLUTION. PO SCH ×2 (11:19→20:30)
[2018-04-08] MEDS: FERROUS SULFATE 325 MG TABLET. PO SCH (11:19)
[2018-04-08] MEDS: PANTOPRAZOLE 40 MG TABLET.DR. PO SCH (11:22)
[2018-04-08] MEDS: POLYETHYLENE GLYCOL 3350 17 GM PACKET. PO SCH (11:22)
[2018-04-08] MEDS: MEMANTINE 10 MG TABLET. PO SCH ×2 (11:24→20:30)
--- NOTE | 2018-04-08 11:57 | PDOC ---
GI PROGRESS NOTES Date Date/Time DATE: 04/08/18 TIME: 11:53 Subjective Subjective clinically stable- awake, confused denies pain Objective Vitals Vital Signs Date Time Temp Pulse Resp B/P (MAP) Pulse Ox O2 Delivery O2 Flow Rate FiO2 04/08/18 08:00 Room Air 04/08/18 07:00 97.3 42 16 155/70 (98) 96 97.3 04/08/18 03:15 98.4 60 20 147/72 (97) 96 98.4 04/07/18 23:54 98.6 62 18 136/74 (94) 96 Room Air 98.6 04/07/18 20:00 Room Air 04/07/18 19:10 98.4 66 18 137/60 (85) 96 Room Air 98.4 04/07/18 15:20 98.4 81 19 130/72 (91) 98 Room Air 98.4 Labs Labs Laboratory Tests Test 04/08/18 04:40 04/08/18 07:35 White Blood Count 4.1 x10^3/uL (4.0-11.0) Red Blood Count 3.38 x10^6/uL (4.30-5.70) Hemoglobin 11.0 g/dL (13.0-17.5) Hematocrit 32.0 % (39.0-53.0) Mean Corpuscular Volume 95 fL (79-100) Mean Corpuscular Hemoglobin 33 pg (25-35) Mean Corpuscular Hemoglobin Concent 34 g/dL (31-37) Red Cell Distribution Width 14.8 % (11.5-14.5) Platelet Count 60 x10^3/uL (140-400) Neutrophils (%) (Auto) 44 % (31-73) Lymphocytes (%) (Auto) 43 % (24-48) Monocytes (%) (Auto) 11 % (0-9) Eosinophils (%) (Auto) 2 % (0-3) Basophils (%) (Auto) 0 % (0-3) Neutrophils # (Auto) 1.8 x10^3uL (1.8-7.7) Lymphocytes # (Auto) 1.8 x10^3/uL (1.0-4.8) Monocytes # (Auto) 0.4 x10^3/uL (0.0-1.1) Eosinophils # (Auto) 0.1 x10^3/uL (0.0-0.7) Basophils # (Auto) 0.0 x10^3/uL (0.0-0.2) Prothrombin Time 16.3 SEC (11.7-14.0) Prothromb Time International Ratio 1.4 (0.8-1.1) Sodium Level 143 mmol/L (136-145) Potassium Level 3.2 mmol/L (3.5-5.1) Chloride Level 113 mmol/L (98-107) Carbon Dioxide Level 26 mmol/L (21-32) Anion Gap 4 (6-14) Blood Urea Nitrogen 9 mg/dL (8-26) Creatinine 1.0 mg/dL (0.7-1.3) Estimated GFR (Cockcroft-Gault) 71.5 BUN/Creatinine Ratio 9 (6-20) Glucose Level 88 mg/dL (70-99) Calcium Level 8.4 mg/dL (8.5-10.1) Total Bilirubin 0.6 mg/dL (0.2-1.0) Gamma Glutamyl Transpeptidase 58 U/L (10-85) Aspartate Amino Transf (AST/SGOT) 43 U/L (15-37) Alanine Aminotransferase (ALT/SGPT) 28 U/L (16-63) Alkaline Phosphatase 100 U/L (46-116) Total Protein 5.1 g/dL (6.4-8.2) Albumin 2.1 g/dL (3.4-5.0) Albumin/Globulin Ratio 0.7 (1.0-1.7) Ammonia 44 mcmol/L (11-34) Physical Exam Physical Exam chest- clear abd- soft non tender no hepatomegaly no icterus Assessment Assessment Elevated Ammonia level- improved today after lactulose and IVF Elevated transaminases- low grade- may be non specific but ordered hepatitis screen- US negative for obvious fatty liver or mass. Plan Plan Continue low dose lactulose f/u on hepatitis screen since clincally improved, continue present plans and monitor SAI TONEY MD Apr 08, 2018 11:57
[2018-04-08 15:00] VITALS: BP 149/69
[2018-04-08] MEDS ORDERED: POTASSIUM CHLORIDE 20 MEQ TABLET.ER. PO ONE (15:15)
--- NOTE | 2018-04-08 15:46 | PDOC ---
PROGRESS NOTES Chief Complaint Chief Complaint acute metabolic encephalopathy, on chronic dementia heat stroke, fever, on admit, better, with sunburn residual elevated ammonia, better w/ lactulose, GI consult following, US neg, acute vasomotor nephropathy with dehydration, cont IV fluid hypokalemia History of Present Illness History of Present Illness plan to send back to his memory care unit tomorrow would consider cont the Lactulose daily for mild constipation and elevated ammonia on admit more alert and talkative today Vitals Vitals Vital Signs Date Time Temp Pulse Resp B/P (MAP) Pulse Ox O2 Delivery O2 Flow Rate FiO2 04/08/18 11:00 97.7 59 18 140/78 (98) 96 97.7 04/08/18 08:00 Room Air Physical Exam General: Alert Heart: Regular rate, Normal S1, Normal S2 Abdomen: Normal bowel sounds, Soft, No tenderness, No hepatosplenomegaly, No masses Extremities: No cyanosis, No edema Skin: Other (chronic eczema/ scaling) Labs LABS Laboratory Tests Test 04/08/18 04:40 04/08/18 07:35 White Blood Count 4.1 x10^3/uL (4.0-11.0) Red Blood Count 3.38 x10^6/uL (4.30-5.70) Hemoglobin 11.0 g/dL (13.0-17.5) Hematocrit 32.0 % (39.0-53.0) Mean Corpuscular Volume 95 fL (79-100) Mean Corpuscular Hemoglobin 33 pg (25-35) Mean Corpuscular Hemoglobin Concent 34 g/dL (31-37) Red Cell Distribution Width 14.8 % (11.5-14.5) Platelet Count 60 x10^3/uL (140-400) Neutrophils (%) (Auto) 44 % (31-73) Lymphocytes (%) (Auto) 43 % (24-48) Monocytes (%) (Auto) 11 % (0-9) Eosinophils (%) (Auto) 2 % (0-3) Basophils (%) (Auto) 0 % (0-3) Neutrophils # (Auto) 1.8 x10^3uL (1.8-7.7) Lymphocytes # (Auto) 1.8 x10^3/uL (1.0-4.8) Monocytes # (Auto) 0.4 x10^3/uL (0.0-1.1) Eosinophils # (Auto) 0.1 x10^3/uL (0.0-0.7) Basophils # (Auto) 0.0 x10^3/uL (0.0-0.2) Prothrombin Time 16.3 SEC (11.7-14.0) Prothromb Time International Ratio 1.4 (0.8-1.1) Sodium Level 143 mmol/L (136-145) Potassium Level 3.2 mmol/L (3.5-5.1) Chloride Level 113 mmol/L (98-107) Carbon Dioxide Level 26 mmol/L (21-32) Anion Gap 4 (6-14) Blood Urea Nitrogen 9 mg/dL (8-26) Creatinine 1.0 mg/dL (0.7-1.3) Estimated GFR (Cockcroft-Gault) 71.5 BUN/Creatinine Ratio 9 (6-20) Glucose Level 88 mg/dL (70-99) Calcium Level 8.4 mg/dL (8.5-10.1) Total Bilirubin 0.6 mg/dL (0.2-1.0) Gamma Glutamyl Transpeptidase 58 U/L (10-85) Aspartate Amino Transf (AST/SGOT) 43 U/L (15-37) Alanine Aminotransferase (ALT/SGPT) 28 U/L (16-63) Alkaline Phosphatase 100 U/L (46-116) Total Protein 5.1 g/dL (6.4-8.2) Albumin 2.1 g/dL (3.4-5.0) Albumin/Globulin Ratio 0.7 (1.0-1.7) Ammonia 44 mcmol/L (11-34) Assessment and Plan Assessmemt and Plan Problems Medical Problems: (1) Heat exhaustion Status: Acute Comment Review of Relevant I have reviewed the following items althea (where applicable) has been applied. Labs Laboratory Tests Test 04/06/18 17:38 04/06/18 17:50 04/06/18 18:02 04/06/18 23:40 White Blood Count 3.8 x10^3/uL (4.0-11.0) Red Blood Count 4.12 x10^6/uL (4.30-5.70) Hemoglobin 13.3 g/dL (13.0-17.5) Hematocrit 38.3 % (39.0-53.0) Mean Corpuscular Volume 93 fL (79-100) Mean Corpuscular Hemoglobin 32 pg (25-35) Mean Corpuscular Hemoglobin Concent 35 g/dL (31-37) Red Cell Distribution Width 14.6 % (11.5-14.5) Platelet Count 103 x10^3/uL (140-400) Neutrophils (%) (Auto) 66 % (31-73) Lymphocytes (%) (Auto) 24 % (24-48) Monocytes (%) (Auto) 8 % (0-9) Eosinophils (%) (Auto) 2 % (0-3) Basophils (%) (Auto) 1 % (0-3) Neutrophils # (Auto) 2.5 x10^3uL (1.8-7.7) Lymphocytes # (Auto) 0.9 x10^3/uL (1.0-4.8) Monocytes # (Auto) 0.3 x10^3/uL (0.0-1.1) Eosinophils # (Auto) 0.1 x10^3/uL (0.0-0.7) Basophils # (Auto) 0.0 x10^3/uL (0.0-0.2) Prothrombin Time 15.6 SEC (11.7-14.0) Prothromb Time International Ratio 1.3 (0.8-1.1) Activated Partial Thromboplast Time 31 SEC (24-38) Sodium Level 143 mmol/L (136-145) Potassium Level 3.4 mmol/L (3.5-5.1) Chloride Level 108 mmol/L (98-107) Carbon Dioxide Level 27 mmol/L (21-32) Anion Gap 8 (6-14) Blood Urea Nitrogen 13 mg/dL (8-26) Creatinine 1.4 mg/dL (0.7-1.3) Estimated GFR (Cockcroft-Gault) 48.5 BUN/Creatinine Ratio 9 (6-20) Glucose Level 159 mg/dL (70-99) Lactic Acid Level 2.9 mmol/L (0.4-2.0) Calcium Level 9.9 mg/dL (8.5-10.1) Magnesium Level 1.8 mg/dL (1.8-2.4) Total Bilirubin 0.9 mg/dL (0.2-1.0) Aspartate Amino Transf (AST/SGOT) 70 U/L (15-37) Alanine Aminotransferase (ALT/SGPT) 36 U/L (16-63) Alkaline Phosphatase 125 U/L (46-116) Creatine Kinase 230 U/L (39-308) Creatine Kinase MB (Mass) 0.7 ng/mL (0.0-3.6) Creatine Kinase MB Relative Index 0.3 % (0-4) Troponin I Quantitative 0.041 ng/mL (0.000-0.055) UW-Kgq-P-Type Natriuretic Peptide 109 pg/mL (0-449) Total Protein 6.5 g/dL (6.4-8.2) Albumin 2.8 g/dL (3.4-5.0) Albumin/Globulin Ratio 0.8 (1.0-1.7) Lipase 146 U/L (73-393) Ammonia 165 mcmol/L (11-34) Urine Collection Type Unknown Urine Color [place] Urine Clarity Cloudy Urine pH 6.0 Urine Specific [place] 1.025 Urine Protein 30 mg/dL (NEG-TRACE) Urine Glucose (UA) Negative mg/dL (NEG) Urine Ketones (Stick) Trace mg/dL (NEG) Urine Blood Large (NEG) Urine Nitrite Negative (NEG) Urine Bilirubin Negative (NEG) Urine Urobilinogen Dipstick 2.0 mg/dL (0.2 mg/dL) Urine Leukocyte Esterase Small (NEG) Urine RBC Tntc /HPF (0-2) Urine WBC 1-4 /HPF (0-4) Urine Squamous Epithelial Cells Occ /LPF Urine Bacteria 0 /HPF (0-FEW) Urine Hyaline Casts Moderate /HPF Urine Mucus Marked /LPF Urine Opiates Screen Neg (NEG) Urine Methadone Screen Neg (NEG) Urine Barbiturates Neg (NEG) Urine Phencyclidine Screen Neg (NEG) Urine Amphetamine/Methamphetamine Neg (NEG) Urine Benzodiazepines Screen Neg (NEG) Urine Cocaine Screen Neg (NEG) Urine Cannabinoids Screen Neg (NEG) Urine Ethyl Alcohol Neg (NEG) Nasal Screen MRSA (PCR) Negative (Negative) Test 04/07/18 03:50 04/08/18 04:40 04/08/18 07:35 White Blood Count 5.9 x10^3/uL (4.0-11.0) 4.1 x10^3/uL (4.0-11.0) Red Blood Count 3.55 x10^6/uL (4.30-5.70) 3.38 x10^6/uL (4.30-5.70) Hemoglobin 11.7 g/dL (13.0-17.5) 11.0 g/dL (13.0-17.5) Hematocrit 33.5 % (39.0-53.0) 32.0 % (39.0-53.0) Mean Corpuscular Volume 94 fL (79-100) 95 fL (79-100) Mean Corpuscular Hemoglobin 33 pg (25-35) 33 pg (25-35) Mean Corpuscular Hemoglobin Concent 35 g/dL (31-37) 34 g/dL (31-37) Red Cell Distribution Width 14.6 % (11.5-14.5) 14.8 % (11.5-14.5) Platelet Count 67 x10^3/uL (140-400) 60 x10^3/uL (140-400) Neutrophils (%) (Auto) 60 % (31-73) 44 % (31-73) Lymphocytes (%) (Auto) 29 % (24-48) 43 % (24-48) Monocytes (%) (Auto) 10 % (0-9) 11 % (0-9) Eosinophils (%) (Auto) 1 % (0-3) 2 % (0-3) Basophils (%) (Auto) 0 % (0-3) 0 % (0-3) Neutrophils # (Auto) 3.5 x10^3uL (1.8-7.7) 1.8 x10^3uL (1.8-7.7) Lymphocytes # (Auto) 1.7 x10^3/uL (1.0-4.8) 1.8 x10^3/uL (1.0-4.8) Monocytes # (Auto) 0.6 x10^3/uL (0.0-1.1) 0.4 x10^3/uL (0.0-1.1) Eosinophils # (Auto) 0.0 x10^3/uL (0.0-0.7) 0.1 x10^3/uL (0.0-0.7) Basophils # (Auto) 0.0 x10^3/uL (0.0-0.2) 0.0 x10^3/uL (0.0-0.2) Sodium Level 145 mmol/L (136-145) 143 mmol/L (136-145) Potassium Level 3.4 mmol/L (3.5-5.1) 3.2 mmol/L (3.5-5.1) Chloride Level 112 mmol/L (98-107) 113 mmol/L (98-107) Carbon Dioxide Level 29 mmol/L (21-32) 26 mmol/L (21-32) Anion Gap 4 (6-14) 4 (6-14) Blood Urea Nitrogen 14 mg/dL (8-26) 9 mg/dL (8-26) Creatinine 1.1 mg/dL (0.7-1.3) 1.0 mg/dL (0.7-1.3) Estimated GFR (Cockcroft-Gault) 64.1 71.5 BUN/Creatinine Ratio 13 (6-20) 9 (6-20) Glucose Level 114 mg/dL (70-99) 88 mg/dL (70-99) Lactic Acid Level 1.3 mmol/L (0.4-2.0) Calcium Level 9.1 mg/dL (8.5-10.1) 8.4 mg/dL (8.5-10.1) Total Bilirubin 0.7 mg/dL (0.2-1.0) 0.6 mg/dL (0.2-1.0) Aspartate Amino Transf (AST/SGOT) 49 U/L (15-37) 43 U/L (15-37) Alanine Aminotransferase (ALT/SGPT) 29 U/L (16-63) 28 U/L (16-63) Alkaline Phosphatase 104 U/L (46-116) 100 U/L (46-116) Creatine Kinase 180 U/L (39-308) Troponin I Quantitative 0.062 ng/mL (0.000-0.055) Total Protein 5.2 g/dL (6.4-8.2) 5.1 g/dL (6.4-8.2) Albumin 2.3 g/dL (3.4-5.0) 2.1 g/dL (3.4-5.0) Albumin/Globulin Ratio 0.8 (1.0-1.7) 0.7 (1.0-1.7) Prothrombin Time 16.3 SEC (11.7-14.0) Prothromb Time International Ratio 1.4 (0.8-1.1) Gamma Glutamyl Transpeptidase 58 U/L (10-85) Ammonia 44 mcmol/L (11-34) Laboratory Tests Test 04/08/18 04:40 04/08/18 07:35 White Blood Count 4.1 x10^3/uL (4.0-11.0) Red Blood Count 3.38 x10^6/uL (4.30-5.70) Hemoglobin 11.0 g/dL (13.0-17.5) Hematocrit 32.0 % (39.0-53.0) Mean Corpuscular Volume 95 fL (79-100) Mean Corpuscular Hemoglobin 33 pg (25-35) Mean Corpuscular Hemoglobin Concent 34 g/dL (31-37) Red Cell Distribution Width 14.8 % (11.5-14.5) Platelet Count 60 x10^3/uL (140-400) Neutrophils (%) (Auto) 44 % (31-73) Lymphocytes (%) (Auto) 43 % (24-48) Monocytes (%) (Auto) 11 % (0-9) Eosinophils (%) (Auto) 2 % (0-3) Basophils (%) (Auto) 0 % (0-3) Neutrophils # (Auto) 1.8 x10^3uL (1.8-7.7) Lymphocytes # (Auto) 1.8 x10^3/uL (1.0-4.8) Monocytes # (Auto) 0.4 x10^3/uL (0.0-1.1) Eosinophils # (Auto) 0.1 x10^3/uL (0.0-0.7) Basophils # (Auto) 0.0 x10^3/uL (0.0-0.2) Prothrombin Time 16.3 SEC (11.7-14.0) Prothromb Time International Ratio 1.4 (0.8-1.1) Sodium Level 143 mmol/L (136-145) Potassium Level 3.2 mmol/L (3.5-5.1) Chloride Level 113 mmol/L (98-107) Carbon Dioxide Level 26 mmol/L (21-32) Anion Gap 4 (6-14) Blood Urea Nitrogen 9 mg/dL (8-26) Creatinine 1.0 mg/dL (0.7-1.3) Estimated GFR (Cockcroft-Gault) 71.5 BUN/Creatinine Ratio 9 (6-20) Glucose Level 88 mg/dL (70-99) Calcium Level 8.4 mg/dL (8.5-10.1) Total Bilirubin 0.6 mg/dL (0.2-1.0) Gamma Glutamyl Transpeptidase 58 U/L (10-85) Aspartate Amino Transf (AST/SGOT) 43 U/L (15-37) Alanine Aminotransferase (ALT/SGPT) 28 U/L (16-63) Alkaline Phosphatase 100 U/L (46-116) Total Protein 5.1 g/dL (6.4-8.2) Albumin 2.1 g/dL (3.4-5.0) Albumin/Globulin Ratio 0.7 (1.0-1.7) Ammonia 44 mcmol/L (11-34) Microbiology 04/06/18 Blood Culture - Preliminary, Resulted NO GROWTH AFTER 1 DAY Medications Current Medications Sodium Chloride 1,000 ml @ 1,000 mls/hr 1X ONCE IV Last administered on at 18:42; Start 04/06/18 at 17:45; Stop 04/06/18 at 18:44; Status DC Sodium Chloride 1,000 ml @ 1,000 mls/hr 1X ONCE IV Last administered on at 18:42; Start 04/06/18 at 17:45; Stop 04/06/18 at 18:44; Status DC Ondansetron HCl (Zofran) 4 mg PRN Q8HRS PRN IV NAUSEA/VOMITING; Start 04/06/18 at 20:45; Stop 04/07/18 at 20:44; Status DC Sodium Chloride 1,000 ml @ 125 mls/hr Q8H IV Last administered on 04/07/18at 12 :43; Start 04/06/18 at 20:43; Stop 04/07/18 at 20:42; Status DC Acetaminophen (Tylenol) 650 mg PRN Q4HRS PRN PO FEVER; Start 04/06/18 at 20:45 ; Stop 04/07/18 at 20:44; Status DC Lactulose (Lactulose) 20 gm BID PO Last administered on 04/08/18 11:19; Start 04/07/18 at 09:00 Enoxaparin Sodium (Lovenox Per Pharmacy Prophylaxis Dosing) 1 each PRN DAILY PRN MC SEE COMMENTS; Start 04/07/18 at 09:00 Phytonadione (Vitamin K Ampule) 5 mg 1X ONCE SQ Last administered on at 10:31; Start 04/07/18 at 09:00; Stop 04/07/18 at 09:01; Status DC Potassium Chloride (Klor-Con) 40 meq 1X ONCE PO Last administered on at 10:30; Start 04/07/18 at 09:00; Stop 04/07/18 at 09:01; Status DC Enoxaparin Sodium (Lovenox 40mg Syringe) 40 mg Q24H SQ ; Start 04/07/18 at 09:00 Aspirin (Ecotrin) 81 mg DAILY PO Last administered on 04/08/18 11:19; Start at 09:00 Atorvastatin Calcium (Lipitor) 40 mg QHS PO Last administered on 04/07/18at 20: 36; Start 04/07/18 at 21:00 Bisacodyl (Dulcolax Tab) 5 mg DAILY PO Last administered on 04/08/18 11:19; Start 04/07/18 at 09:00 Vitamin D (Vitamin D3) 2,000 unit DAILY PO Last administered on 04/08/18 11:19 ; Start 04/07/18 at 09:00 Cyanocobalamin (Vitamin B-12) 1,000 mcg DAILY PO Last administered on 11:18; Start 04/07/18 at 09:00 Docusate Sodium (Colace) 100 mg DAILY PO Last administered on 04/08/18 11:19; Start 04/07/18 at 09:00 Ferrous Sulfate (Feosol) 325 mg DAILY PO Last administered on 04/08/18 11:19; Start 04/07/18 at 09:00 Memantine (Namenda) 10 mg BID PO Last administered on 04/08/18at 11:24; Start at 10:00 Mirtazapine (Remeron) 7.5 mg QHS PO Last administered on 04/07/18at 20:36; Start 04/07/18 at 21:00 Pantoprazole Sodium (Protonix) 40 mg DAILYAC PO Last administered on 04/08/18at 11:22; Start 04/07/18 at 10:00 Polyethylene Glycol (miraLAX PACKET) 17 gm DAILY PO Last administered on at 11:22; Start 04/07/18 at 10:00 Sertraline HCl (Zoloft) 25 mg DAILY PO Last administered on 04/08/18at 11:18; Start 04/07/18 at 10:00 Non-Formulary Medication (Sulfacetamide Sodium/Sulfur (Sod Sulfacetamide-Sulfur Lotn)) 25 gm DAILY TP ; Start 04/07/18 at 09:00; Status UNV Potassium Chloride (Klor-Con) 40 meq 1X ONCE PO ; Start 04/08/18 at 15:15; Stop 04/08/18 at 15:16; Status DC Potassium Chloride (Klor-Con) 20 meq DAILYWBKFT PO ; Start 04/09/18 at 08:00 Active Scripts Active Reported Namenda Xr (Memantine Hcl) 28 Mg Cap.spr.24 28 Mg PO HS Zoloft (Sertraline Hcl) 25 Mg Tablet 1 Tab PO DAILY Remeron (Mirtazapine) 15 Mg Tablet 0.5 Tab PO QHS Sod Sulfacetamide-Sulfur Lotn (Sulfacetamide Sodium/Sulfur) 25 Gm Lotion 25 Gm TP DAILY apply to dry skin topically daily Multivitamins With Minerals (Multivitamin With Minerals) 1 Each Tablet 1 Each PO Vitamin B-12 (Cyanocobalamin (Vitamin B-12)) 1,000 Mcg Tablet 1 Tab PO DAILY Ferrous Sulfate 325 Mg Tablet 1 Tab PO DAILY Vitamin D3 (Cholecalciferol (Vitamin D3)) 1,000 Unit Tablet 2 Tab PO DAILY Magnesium Oxide 250 Mg Tablet 250 Mg PO Omeprazole 20 Mg Capsule. 1 Cap PO DAILY Aspirin Ec (Aspirin) 81 Mg Tablet. 1 Tab PO DAILY Docusate Sodium 100 Mg Capsule 1 Cap PO DAILY Calcium 500-Vit D3 600 Tablet (Calcium Carbonate/Vitamin D3) 1 Each Tablet 1 Each PO Miralax (Polyethylene Glycol 3350) 17 Gm Powd.pack 1 Packet PO DAILY Dulcolax (Bisacodyl) 5 Mg Tablet. 1 Tab PO UD Krill Oil 500 mg Softgel (Krill/Om-3/Dha/Epa/Phospho/Ast) 1 Each Capsule 1 Each PO Atorvastatin Calcium 40 Mg Tablet 1 Tab PO DAILY Vitals/I & O Vital Sign - Last 24 Hours 04/07/18 04/07/18 04/07/18 04/08/18 19:10 20:00 23:54 03:15 Temp 98.4 98.6 98.4 98.4 98.6 98.4 Pulse 66 62 60 Resp 18 18 20 B/P (MAP) 137/60 (85) 136/74 (94) 147/72 (97) Pulse Ox 96 96 96 O2 Delivery Room Air Room Air Room Air 04/08/18 04/08/18 04/08/18 07:00 08:00 11:00 Temp 97.3 97.7 97.3 97.7 Pulse 42 59 Resp 16 18 B/P (MAP) 155/70 (98) 140/78 (98) Pulse Ox 96 96 O2 Delivery Room Air Intake and Output 04/07/18 04/07/18 04/08/18 15:00 23:00 07:00 Intake Total 200 ml 1050 ml Output Total 400 ml 1900 ml Balance -200 ml -850 ml ANETTE BUTLER MD Apr 08, 2018 15:46
[2018-04-08 19:34] VITALS: BP 156/79
[2018-04-08] MEDS: MIRTAZAPINE 7.5 MG TABLET. PO SCH (20:30)
[2018-04-08] MEDS: ATORVASTATIN CALCIUM 40 MG TABLET. PO SCH (20:30)
[2018-04-08 23:49] VITALS: BP 158/73
[2018-04-09 03:26] VITALS: BP 152/80
[2018-04-09] MEDS: PANTOPRAZOLE 40 MG TABLET.DR. PO SCH (07:30)
[2018-04-09 07:41] VITALS: BP 163/91
[2018-04-09] MEDS: ASPIRIN ENTERIC COATED 81 MG TABLET.DR. PO SCH (09:00)
[2018-04-09] MEDS: ENOXAPARIN 40 MG/0.4 ML SYRINGE. SQ SCH (09:00)
--- NOTE | 2018-04-09 09:08 | PDOC ---
PROGRESS NOTES Chief Complaint Chief Complaint acute metabolic encephalopathy, on chronic dementia heat stroke, fever, on admit, better, sunburn residual elevated ammonia, elevated ammonia- no prior history of liver disease better w/ lactulose, GI following, US neg, acute vasomotor nephropathy with dehydration, cont IV fluid hypokalemia History of Present Illness History of Present Illness plan to send back to his memory care unit tomorrow would consider cont the Lactulose daily for mild constipation and elevated ammonia on admit more alert and talkative today Vitals Vitals Vital Signs Date Time Temp Pulse Resp B/P (MAP) Pulse Ox O2 Delivery O2 Flow Rate FiO2 04/09/18 07:41 97.6 71 20 163/91 (115) 96 Room Air 97.6 Physical Exam General: Alert Heart: Regular rate, Normal S1, Normal S2 Abdomen: Normal bowel sounds, Soft, No tenderness, No hepatosplenomegaly, No masses Extremities: No cyanosis, No edema Skin: Other (chronic eczema/ scaling) Assessment and Plan Assessmemt and Plan Problems Medical Problems: (1) Heat exhaustion Status: Acute Comment Review of Relevant I have reviewed the following items althea (where applicable) has been applied. Labs Laboratory Tests Test 04/08/18 04:40 04/08/18 07:35 White Blood Count 4.1 x10^3/uL (4.0-11.0) Red Blood Count 3.38 x10^6/uL (4.30-5.70) Hemoglobin 11.0 g/dL (13.0-17.5) Hematocrit 32.0 % (39.0-53.0) Mean Corpuscular Volume 95 fL (79-100) Mean Corpuscular Hemoglobin 33 pg (25-35) Mean Corpuscular Hemoglobin Concent 34 g/dL (31-37) Red Cell Distribution Width 14.8 % (11.5-14.5) Platelet Count 60 x10^3/uL (140-400) Neutrophils (%) (Auto) 44 % (31-73) Lymphocytes (%) (Auto) 43 % (24-48) Monocytes (%) (Auto) 11 % (0-9) Eosinophils (%) (Auto) 2 % (0-3) Basophils (%) (Auto) 0 % (0-3) Neutrophils # (Auto) 1.8 x10^3uL (1.8-7.7) Lymphocytes # (Auto) 1.8 x10^3/uL (1.0-4.8) Monocytes # (Auto) 0.4 x10^3/uL (0.0-1.1) Eosinophils # (Auto) 0.1 x10^3/uL (0.0-0.7) Basophils # (Auto) 0.0 x10^3/uL (0.0-0.2) Prothrombin Time 16.3 SEC (11.7-14.0) Prothromb Time International Ratio 1.4 (0.8-1.1) Sodium Level 143 mmol/L (136-145) Potassium Level 3.2 mmol/L (3.5-5.1) Chloride Level 113 mmol/L (98-107) Carbon Dioxide Level 26 mmol/L (21-32) Anion Gap 4 (6-14) Blood Urea Nitrogen 9 mg/dL (8-26) Creatinine 1.0 mg/dL (0.7-1.3) Estimated GFR (Cockcroft-Gault) 71.5 BUN/Creatinine Ratio 9 (6-20) Glucose Level 88 mg/dL (70-99) Calcium Level 8.4 mg/dL (8.5-10.1) Total Bilirubin 0.6 mg/dL (0.2-1.0) Gamma Glutamyl Transpeptidase 58 U/L (10-85) Aspartate Amino Transf (AST/SGOT) 43 U/L (15-37) Alanine Aminotransferase (ALT/SGPT) 28 U/L (16-63) Alkaline Phosphatase 100 U/L (46-116) Total Protein 5.1 g/dL (6.4-8.2) Albumin 2.1 g/dL (3.4-5.0) Albumin/Globulin Ratio 0.7 (1.0-1.7) Ammonia 44 mcmol/L (11-34) Microbiology 04/06/18 Blood Culture - Preliminary, Resulted NO GROWTH AFTER 2 DAYS Medications Current Medications Sodium Chloride 1,000 ml @ 1,000 mls/hr 1X ONCE IV Last administered on at 18:42; Start 04/06/18 at 17:45; Stop 04/06/18 at 18:44; Status DC Sodium Chloride 1,000 ml @ 1,000 mls/hr 1X ONCE IV Last administered on at 18:42; Start 04/06/18 at 17:45; Stop 04/06/18 at 18:44; Status DC Ondansetron HCl (Zofran) 4 mg PRN Q8HRS PRN IV NAUSEA/VOMITING; Start 04/06/18 at 20:45; Stop 04/07/18 at 20:44; Status DC Sodium Chloride 1,000 ml @ 125 mls/hr Q8H IV Last administered on 04/07/18at 12 :43; Start 04/06/18 at 20:43; Stop 04/07/18 at 20:42; Status DC Acetaminophen (Tylenol) 650 mg PRN Q4HRS PRN PO FEVER; Start 04/06/18 at 20:45 ; Stop 04/07/18 at 20:44; Status DC Lactulose (Lactulose) 20 gm BID PO Last administered on 04/08/18at 20:30; Start 04/07/18 at 09:00 Enoxaparin Sodium (Lovenox Per Pharmacy Prophylaxis Dosing) 1 each PRN DAILY PRN MC SEE COMMENTS; Start 04/07/18 at 09:00 Phytonadione (Vitamin K Ampule) 5 mg 1X ONCE SQ Last administered on at 10:31; Start 04/07/18 at 09:00; Stop 04/07/18 at 09:01; Status DC Potassium Chloride (Klor-Con) 40 meq 1X ONCE PO Last administered on at 10:30; Start 04/07/18 at 09:00; Stop 04/07/18 at 09:01; Status DC Enoxaparin Sodium (Lovenox 40mg Syringe) 40 mg Q24H SQ ; Start 04/07/18 at 09:00 Aspirin (Ecotrin) 81 mg DAILY PO Last administered on 04/08/18 11:19; Start at 09:00 Atorvastatin Calcium (Lipitor) 40 mg QHS PO Last administered on 04/08/18at 20: 30; Start 04/07/18 at 21:00 Bisacodyl (Dulcolax Tab) 5 mg DAILY PO Last administered on 04/08/18 11:19; Start 04/07/18 at 09:00 Vitamin D (Vitamin D3) 2,000 unit DAILY PO Last administered on 04/08/18 11:19 ; Start 04/07/18 at 09:00 Cyanocobalamin (Vitamin B-12) 1,000 mcg DAILY PO Last administered on 11:18; Start 04/07/18 at 09:00 Docusate Sodium (Colace) 100 mg DAILY PO Last administered on 04/08/18 11:19; Start 04/07/18 at 09:00 Ferrous Sulfate (Feosol) 325 mg DAILY PO Last administered on 04/08/18 11:19; Start 04/07/18 at 09:00 Memantine (Namenda) 10 mg BID PO Last administered on 04/08/18 20:30; Start at 10:00 Mirtazapine (Remeron) 7.5 mg QHS PO Last administered on 04/08/18 20:30; Start 04/07/18 at 21:00 Pantoprazole Sodium (Protonix) 40 mg DAILYAC PO Last administered on 04/08/18 11:22; Start 04/07/18 at 10:00 Polyethylene Glycol (miraLAX PACKET) 17 gm DAILY PO Last administered on 11:22; Start 04/07/18 at 10:00 Sertraline HCl (Zoloft) 25 mg DAILY PO Last administered on 04/08/18 11:18; Start 04/07/18 at 10:00 Non-Formulary Medication (Sulfacetamide Sodium/Sulfur (Sod Sulfacetamide-Sulfur Lotn)) 25 gm DAILY TP ; Start 04/07/18 at 09:00; Status UNV Potassium Chloride (Klor-Con) 40 meq 1X ONCE PO Last administered on at 16:21; Start 04/08/18 at 15:15; Stop 04/08/18 at 15:16; Status DC Potassium Chloride (Klor-Con) 20 meq DAILYWBKFT PO ; Start 04/09/18 at 08:00 Active Scripts Active Reported Namenda Xr (Memantine Hcl) 28 Mg Cap.spr.24 28 Mg PO HS Zoloft (Sertraline Hcl) 25 Mg Tablet 1 Tab PO DAILY Remeron (Mirtazapine) 15 Mg Tablet 0.5 Tab PO QHS Sod Sulfacetamide-Sulfur Lotn (Sulfacetamide Sodium/Sulfur) 25 Gm Lotion 25 Gm TP DAILY apply to dry skin topically daily Multivitamins With Minerals (Multivitamin With Minerals) 1 Each Tablet 1 Each PO Vitamin B-12 (Cyanocobalamin (Vitamin B-12)) 1,000 Mcg Tablet 1 Tab PO DAILY Ferrous Sulfate 325 Mg Tablet 1 Tab PO DAILY Vitamin D3 (Cholecalciferol (Vitamin D3)) 1,000 Unit Tablet 2 Tab PO DAILY Magnesium Oxide 250 Mg Tablet 250 Mg PO Omeprazole 20 Mg Capsule. 1 Cap PO DAILY Aspirin Ec (Aspirin) 81 Mg Tablet.dr 1 Tab PO DAILY Docusate Sodium 100 Mg Capsule 1 Cap PO DAILY Calcium 500-Vit D3 600 Tablet (Calcium Carbonate/Vitamin D3) 1 Each Tablet 1 Each PO Miralax (Polyethylene Glycol 3350) 17 Gm Powd.pack 1 Packet PO DAILY Dulcolax (Bisacodyl) 5 Mg Tablet. 1 Tab PO UD Krill Oil 500 mg Softgel (Krill/Om-3/Dha/Epa/Phospho/Ast) 1 Each Capsule 1 Each PO Atorvastatin Calcium 40 Mg Tablet 1 Tab PO DAILY Vitals/I & O Vital Sign - Last 24 Hours 04/08/18 04/08/18 04/08/18 04/08/18 11:00 15:00 19:34 19:55 Temp 97.7 97.9 98.8 97.7 97.9 98.8 Pulse 59 48 68 Resp 18 18 16 B/P (MAP) 140/78 (98) 149/69 (95) 156/79 (104) Pulse Ox 96 97 97 O2 Delivery Room Air Room Air 04/08/18 04/09/18 04/09/18 23:49 03:26 07:41 Temp 98.7 99.5 97.6 98.7 99.5 97.6 Pulse 66 66 71 Resp 16 16 20 B/P (MAP) 158/73 (101) 152/80 (104) 163/91 (115) Pulse Ox 96 96 96 O2 Delivery Room Air Room Air Room Air Intake and Output 04/08/18 04/08/18 04/09/18 15:00 23:00 07:00 Intake Total 120 ml 300 ml Output Total 200 ml Balance -80 ml 300 ml MUSA MERRITT MD Apr 09, 2018 09:08
[2018-04-09] MEDS: POLYETHYLENE GLYCOL 3350 17 GM PACKET. PO SCH (09:26)
[2018-04-09] MEDS: LACTULOSE 20 GM/30 ML SOLUTION. PO SCH ×2 (09:26→21:08)
[2018-04-09] MEDS: CHOLECALCIFEROL (VITAMIN D3) 1,000 UNIT TABLET PO SCH (09:26)
[2018-04-09] MEDS: FERROUS SULFATE 325 MG TABLET. PO SCH (09:26)
[2018-04-09] MEDS: DOCUSATE SODIUM 100 MG CAPSULE. PO SCH (09:26)
[2018-04-09] MEDS: BISACODYL 5 MG TABLET.DR. PO SCH (09:26)
[2018-04-09] MEDS: SERTRALINE 25 MG TABLET. PO SCH (09:26)
[2018-04-09] MEDS: CYANOCOBALAMIN (VITAMIN B-12) 1,000 MCG TABLET. PO SCH (09:26)
[2018-04-09] MEDS: POTASSIUM CHLORIDE 20 MEQ TABLET.ER. PO SCH (09:26)
[2018-04-09] MEDS: MEMANTINE 10 MG TABLET. PO SCH ×2 (09:29→21:08)
[2018-04-09 11:11] VITALS: BP 146/68
--- NOTE | 2018-04-09 11:36 | PDOC ---
Subjective: Subjective: Denies pain. Can't tell me where he is. Objective: Objective: Per RN - confused w/ h/o Alzheimer's, tolerating dysphagia diet, no stools. Reviewed chart - to memory care today? Vital Signs: Vital Signs Date Time Temp Pulse Resp B/P (MAP) Pulse Ox O2 Delivery O2 Flow Rate FiO2 04/09/18 11:11 97.9 58 20 146/68 (94) 98 Room Air 97.9 PE: GEN: NAD LUNGS: room air HEART: bradycardic ABD: S/ND/NT NEURO/PSYCH: confused, pleasant A/P: Dementia Hyperammonemia - improved (165 to 44), no h/o liver disease and normal liver on US Mildly elevated AST - better Constipation -- Hepatitis screen was cancelled - will reorder for completeness as Dr. Reyez suggested. Continue lactulose - can adjust dose if indicated. RADHA DOMÍNGUEZ Apr 09, 2018 11:36
[2018-04-09 15:25] VITALS: BP 138/69
[2018-04-09] MEDS ORDERED: POTASSIUM CHLORIDE 20 MEQ TABLET.ER. PO ONE (17:30)
[2018-04-09 18:26] LABS: CALCIUM 8.4 mg/dL (8.5-10.1); CREATININE 0.9 mg/dL (0.7-1.3); GFR 80.8; POTASSIUM 3.1 mmol/L (3.5-5.1)
[2018-04-09 19:25] VITALS: BP 145/61
[2018-04-09] MEDS: ATORVASTATIN CALCIUM 40 MG TABLET. PO SCH (21:08)
[2018-04-09] MEDS: MIRTAZAPINE 7.5 MG TABLET. PO SCH (21:08)
[2018-04-09 23:15] VITALS: BP 129/68
[2018-04-10 03:13] VITALS: BP 139/69
[2018-04-10 05:29] LABS: BASO % 0 % (0-3); EOS # 0.1 x10^3/uL (0.0-0.7); EOS % 3 % (0-3); HEMATOCRIT 34.3 % (39.0-53.0); HEMOGLOBIN 11.8 g/dL (13.0-17.5); LYMPH # 1.5 x10^3/uL (1.0-4.8); LYMPH % 37 % (24-48); MEAN CORPUSCULAR HEMOGLOBIN 33 pg (25-35); MEAN CORPUSCULAR HGB CONC 34 g/dL (31-37); MEAN CORPUSCULAR VOLUME 94 fL (79-100); MONO # 0.4 x10^3/uL (0.0-1.1); MONO % 11 % (0-9); NEUT # 2.1 x10^3uL (1.8-7.7); NEUT % 50 % (31-73); PLATELET COUNT 64 x10^3/uL (140-400); RED BLOOD COUNT 3.64 x10^6/uL (4.30-5.70); RED CELL DISTRIBUTION WIDTH 14.5 % (11.5-14.5); WHITE BLOOD COUNT 4.2 x10^3/uL (4.0-11.0)
[2018-04-10 07:36] VITALS: BP 151/82
[2018-04-10] MEDS: LACTULOSE 20 GM/30 ML SOLUTION. PO SCH ×3 (08:10→20:44)
[2018-04-10] MEDS: CHOLECALCIFEROL (VITAMIN D3) 1,000 UNIT TABLET PO SCH (08:11)
[2018-04-10] MEDS: CYANOCOBALAMIN (VITAMIN B-12) 1,000 MCG TABLET. PO SCH (08:11)
[2018-04-10] MEDS: DOCUSATE SODIUM 100 MG CAPSULE. PO SCH (08:14)
[2018-04-10] MEDS: SERTRALINE 25 MG TABLET. PO SCH (08:14)
[2018-04-10] MEDS: POTASSIUM CHLORIDE 20 MEQ TABLET.ER. PO SCH (08:14)
[2018-04-10] MEDS: FERROUS SULFATE 325 MG TABLET. PO SCH (08:14)
[2018-04-10] MEDS: PANTOPRAZOLE 40 MG TABLET.DR. PO SCH (08:14)
[2018-04-10] MEDS: BISACODYL 5 MG TABLET.DR. PO SCH (08:14)
[2018-04-10] MEDS: ASPIRIN ENTERIC COATED 81 MG TABLET.DR. PO SCH (08:14)
[2018-04-10] MEDS: POLYETHYLENE GLYCOL 3350 17 GM PACKET. PO SCH (08:15)
[2018-04-10] MEDS: MEMANTINE 10 MG TABLET. PO SCH ×2 (08:15→20:44)
[2018-04-10] MEDS: ENOXAPARIN 40 MG/0.4 ML SYRINGE. SQ SCH (08:23)
--- NOTE | 2018-04-10 10:18 | PDOC ---
PROGRESS NOTES Chief Complaint Chief Complaint acute metabolic encephalopathy, on chronic dementia heat stroke, fever, on admit, better, sunburn residual elevated ammonia, elevated ammonia- no prior history of liver disease better w/ lactulose, GI following, US neg, acute vasomotor nephropathy with dehydration, cont IV fluid mod protein-caloric malnutrition hypokalemia, replete elevated ammonia, recheck today History of Present Illness History of Present Illness plan to send back to his memory care unit when k ok cont the Lactulose daily for mild constipation and elevated ammonia on admit more alert and talkative appetite fair ua today bmp in am serum ammonia today Vitals Vitals Vital Signs Date Time Temp Pulse Resp B/P (MAP) Pulse Ox O2 Delivery O2 Flow Rate FiO2 04/10/18 07:45 Room Air 04/10/18 07:36 97.9 57 18 151/82 (105) 95 97.9 Physical Exam General: Alert, Cooperative, No acute distress Heart: Regular rate, Normal S1, Normal S2 Lungs: Clear Abdomen: Normal bowel sounds, Soft, No tenderness, No hepatosplenomegaly, No masses Extremities: No clubbing, No cyanosis, No edema Skin: Other (chronic eczema/ scaling) Labs LABS Right upper quadrant abdominal ultrasound, 04/07/2018: HISTORY: Elevated ammonia level The gallbladder is surgically absent. The common hepatic duct measures 6 mm. There is no evidence of a hepatic mass or bile duct dilatation. The pancreas was obscured by overlying bowel. Limited views of the right kidney show no abnormality. IMPRESSION: 1. Status post cholecystectomy. 2. No acute abnormality is detected. Electronically signed by: Sha Alba MD (04/07/2018 2:23 PM) [facility] Laboratory Tests Test 04/09/18 17:35 04/10/18 04:00 Sodium Level 143 mmol/L (136-145) Potassium Level 3.1 mmol/L (3.5-5.1) Chloride Level 109 mmol/L (98-107) Carbon Dioxide Level 32 mmol/L (21-32) Anion Gap 2 (6-14) Blood Urea Nitrogen 8 mg/dL (8-26) Creatinine 0.9 mg/dL (0.7-1.3) Estimated GFR (Cockcroft-Gault) 80.8 Glucose Level 97 mg/dL (70-99) Calcium Level 8.4 mg/dL (8.5-10.1) White Blood Count 4.2 x10^3/uL (4.0-11.0) Red Blood Count 3.64 x10^6/uL (4.30-5.70) Hemoglobin 11.8 g/dL (13.0-17.5) Hematocrit 34.3 % (39.0-53.0) Mean Corpuscular Volume 94 fL (79-100) Mean Corpuscular Hemoglobin 33 pg (25-35) Mean Corpuscular Hemoglobin Concent 34 g/dL (31-37) Red Cell Distribution Width 14.5 % (11.5-14.5) Platelet Count 64 x10^3/uL (140-400) Neutrophils (%) (Auto) 50 % (31-73) Lymphocytes (%) (Auto) 37 % (24-48) Monocytes (%) (Auto) 11 % (0-9) Eosinophils (%) (Auto) 3 % (0-3) Basophils (%) (Auto) 0 % (0-3) Neutrophils # (Auto) 2.1 x10^3uL (1.8-7.7) Lymphocytes # (Auto) 1.5 x10^3/uL (1.0-4.8) Monocytes # (Auto) 0.4 x10^3/uL (0.0-1.1) Eosinophils # (Auto) 0.1 x10^3/uL (0.0-0.7) Basophils # (Auto) 0.0 x10^3/uL (0.0-0.2) Assessment and Plan Assessmemt and Plan Problems Medical Problems: (1) Heat exhaustion Status: Acute Comment Review of Relevant I have reviewed the following items althea (where applicable) has been applied. Labs Laboratory Tests Test 04/09/18 17:35 04/10/18 04:00 Sodium Level 143 mmol/L (136-145) Potassium Level 3.1 mmol/L (3.5-5.1) Chloride Level 109 mmol/L (98-107) Carbon Dioxide Level 32 mmol/L (21-32) Anion Gap 2 (6-14) Blood Urea Nitrogen 8 mg/dL (8-26) Creatinine 0.9 mg/dL (0.7-1.3) Estimated GFR (Cockcroft-Gault) 80.8 Glucose Level 97 mg/dL (70-99) Calcium Level 8.4 mg/dL (8.5-10.1) White Blood Count 4.2 x10^3/uL (4.0-11.0) Red Blood Count 3.64 x10^6/uL (4.30-5.70) Hemoglobin 11.8 g/dL (13.0-17.5) Hematocrit 34.3 % (39.0-53.0) Mean Corpuscular Volume 94 fL (79-100) Mean Corpuscular Hemoglobin 33 pg (25-35) Mean Corpuscular Hemoglobin Concent 34 g/dL (31-37) Red Cell Distribution Width 14.5 % (11.5-14.5) Platelet Count 64 x10^3/uL (140-400) Neutrophils (%) (Auto) 50 % (31-73) Lymphocytes (%) (Auto) 37 % (24-48) Monocytes (%) (Auto) 11 % (0-9) Eosinophils (%) (Auto) 3 % (0-3) Basophils (%) (Auto) 0 % (0-3) Neutrophils # (Auto) 2.1 x10^3uL (1.8-7.7) Lymphocytes # (Auto) 1.5 x10^3/uL (1.0-4.8) Monocytes # (Auto) 0.4 x10^3/uL (0.0-1.1) Eosinophils # (Auto) 0.1 x10^3/uL (0.0-0.7) Basophils # (Auto) 0.0 x10^3/uL (0.0-0.2) Laboratory Tests Test 04/09/18 17:35 04/10/18 04:00 Sodium Level 143 mmol/L (136-145) Potassium Level 3.1 mmol/L (3.5-5.1) Chloride Level 109 mmol/L (98-107) Carbon Dioxide Level 32 mmol/L (21-32) Anion Gap 2 (6-14) Blood Urea Nitrogen 8 mg/dL (8-26) Creatinine 0.9 mg/dL (0.7-1.3) Estimated GFR (Cockcroft-Gault) 80.8 Glucose Level 97 mg/dL (70-99) Calcium Level 8.4 mg/dL (8.5-10.1) White Blood Count 4.2 x10^3/uL (4.0-11.0) Red Blood Count 3.64 x10^6/uL (4.30-5.70) Hemoglobin 11.8 g/dL (13.0-17.5) Hematocrit 34.3 % (39.0-53.0) Mean Corpuscular Volume 94 fL (79-100) Mean Corpuscular Hemoglobin 33 pg (25-35) Mean Corpuscular Hemoglobin Concent 34 g/dL (31-37) Red Cell Distribution Width 14.5 % (11.5-14.5) Platelet Count 64 x10^3/uL (140-400) Neutrophils (%) (Auto) 50 % (31-73) Lymphocytes (%) (Auto) 37 % (24-48) Monocytes (%) (Auto) 11 % (0-9) Eosinophils (%) (Auto) 3 % (0-3) Basophils (%) (Auto) 0 % (0-3) Neutrophils # (Auto) 2.1 x10^3uL (1.8-7.7) Lymphocytes # (Auto) 1.5 x10^3/uL (1.0-4.8) Monocytes # (Auto) 0.4 x10^3/uL (0.0-1.1) Eosinophils # (Auto) 0.1 x10^3/uL (0.0-0.7) Basophils # (Auto) 0.0 x10^3/uL (0.0-0.2) Microbiology 04/06/18 Blood Culture - Preliminary, Resulted NO GROWTH AFTER 3 DAYS 04/06/18 Urine Culture - Final, Complete 04/06/18 Urine Culture Result 1 (NAJMA) - Final, Complete Medications Current Medications Sodium Chloride 1,000 ml @ 1,000 mls/hr 1X ONCE IV Last administered on at 18:42; Start 04/06/18 at 17:45; Stop 04/06/18 at 18:44; Status DC Sodium Chloride 1,000 ml @ 1,000 mls/hr 1X ONCE IV Last administered on at 18:42; Start 04/06/18 at 17:45; Stop 04/06/18 at 18:44; Status DC Ondansetron HCl (Zofran) 4 mg PRN Q8HRS PRN IV NAUSEA/VOMITING; Start 04/06/18 at 20:45; Stop 04/07/18 at 20:44; Status DC Sodium Chloride 1,000 ml @ 125 mls/hr Q8H IV Last administered on 04/07/18at 12 :43; Start 04/06/18 at 20:43; Stop 04/07/18 at 20:42; Status DC Acetaminophen (Tylenol) 650 mg PRN Q4HRS PRN PO FEVER; Start 04/06/18 at 20:45 ; Stop 04/07/18 at 20:44; Status DC Lactulose (Lactulose) 20 gm BID PO Last administered on 04/10/18at 08:10; Start 04/07/18 at 09:00 Enoxaparin Sodium (Lovenox Per Pharmacy Prophylaxis Dosing) 1 each PRN DAILY PRN MC SEE COMMENTS; Start 04/07/18 at 09:00 Phytonadione (Vitamin K Ampule) 5 mg 1X ONCE SQ Last administered on at 10:31; Start 04/07/18 at 09:00; Stop 04/07/18 at 09:01; Status DC Potassium Chloride (Klor-Con) 40 meq 1X ONCE PO Last administered on at 10:30; Start 04/07/18 at 09:00; Stop 04/07/18 at 09:01; Status DC Enoxaparin Sodium (Lovenox 40mg Syringe) 40 mg Q24H SQ Last administered on at 08:23; Start 04/07/18 at 09:00 Aspirin (Ecotrin) 81 mg DAILY PO Last administered on 04/10/18at 08:14; Start at 09:00 Atorvastatin Calcium (Lipitor) 40 mg QHS PO Last administered on 04/09/18at 21: 08; Start 04/07/18 at 21:00 Bisacodyl (Dulcolax Tab) 5 mg DAILY PO Last administered on 04/10/18at 08:14; Start 04/07/18 at 09:00 Vitamin D (Vitamin D3) 2,000 unit DAILY PO Last administered on 04/10/18at 08:11 ; Start 04/07/18 at 09:00 Cyanocobalamin (Vitamin B-12) 1,000 mcg DAILY PO Last administered on 08:11; Start 04/07/18 at 09:00 Docusate Sodium (Colace) 100 mg DAILY PO Last administered on 04/10/18 08:14; Start 04/07/18 at 09:00 Ferrous Sulfate (Feosol) 325 mg DAILY PO Last administered on 04/10/18 08:14; Start 04/07/18 at 09:00 Memantine (Namenda) 10 mg BID PO Last administered on 04/10/18 08:15; Start at 10:00 Mirtazapine (Remeron) 7.5 mg QHS PO Last administered on 04/09/18 21:08; Start 04/07/18 at 21:00 Pantoprazole Sodium (Protonix) 40 mg DAILYAC PO Last administered on 04/10/18 08:14; Start 04/07/18 at 10:00 Polyethylene Glycol (miraLAX PACKET) 17 gm DAILY PO Last administered on at 08:15; Start 04/07/18 at 10:00 Sertraline HCl (Zoloft) 25 mg DAILY PO Last administered on 04/10/18at 08:14; Start 04/07/18 at 10:00 Non-Formulary Medication (Sulfacetamide Sodium/Sulfur (Sod Sulfacetamide-Sulfur Lotn)) 25 gm DAILY TP ; Start 04/07/18 at 09:00; Status UNV Potassium Chloride (Klor-Con) 40 meq 1X ONCE PO Last administered on at 16:21; Start 04/08/18 at 15:15; Stop 04/08/18 at 15:16; Status DC Potassium Chloride (Klor-Con) 20 meq DAILYWBKFT PO Last administered on at 08:14; Start 04/09/18 at 08:00 Potassium Chloride (Klor-Con) 40 meq 1X ONCE PO Last administered on at 17:30; Start 04/09/18 at 17:30; Stop 04/09/18 at 17:31; Status DC Active Scripts Active Reported Namenda Xr (Memantine Hcl) 28 Mg Cap.spr.24 28 Mg PO HS Zoloft (Sertraline Hcl) 25 Mg Tablet 1 Tab PO DAILY Remeron (Mirtazapine) 15 Mg Tablet 0.5 Tab PO QHS Sod Sulfacetamide-Sulfur Lotn (Sulfacetamide Sodium/Sulfur) 25 Gm Lotion 25 Gm TP DAILY apply to dry skin topically daily Multivitamins With Minerals (Multivitamin With Minerals) 1 Each Tablet 1 Each PO Vitamin B-12 (Cyanocobalamin (Vitamin B-12)) 1,000 Mcg Tablet 1 Tab PO DAILY Ferrous Sulfate 325 Mg Tablet 1 Tab PO DAILY Vitamin D3 (Cholecalciferol (Vitamin D3)) 1,000 Unit Tablet 2 Tab PO DAILY Magnesium Oxide 250 Mg Tablet 250 Mg PO Omeprazole 20 Mg Capsule.dr 1 Cap PO DAILY Aspirin Ec (Aspirin) 81 Mg Tablet.dr 1 Tab PO DAILY Docusate Sodium 100 Mg Capsule 1 Cap PO DAILY Calcium 500-Vit D3 600 Tablet (Calcium Carbonate/Vitamin D3) 1 Each Tablet 1 Each PO Miralax (Polyethylene Glycol 3350) 17 Gm Powd.pack 1 Packet PO DAILY Dulcolax (Bisacodyl) 5 Mg Tablet.dr 1 Tab PO UD Krill Oil 500 mg Softgel (Krill/Om-3/Dha/Epa/Phospho/Ast) 1 Each Capsule 1 Each PO Atorvastatin Calcium 40 Mg Tablet 1 Tab PO DAILY Vitals/I & O Vital Sign - Last 24 Hours 04/09/18 04/09/18 04/09/18 04/09/18 11:11 15:25 19:25 20:15 Temp 97.9 97.9 98.2 97.9 97.9 98.2 Pulse 58 65 45 Resp 20 20 16 B/P (MAP) 146/68 (94) 138/69 (92) 145/61 (89) Pulse Ox 98 97 99 O2 Delivery Room Air Room Air Room Air Room Air 04/09/18 04/10/18 04/10/18 04/10/18 23:15 03:13 07:36 07:45 Temp 97.7 97.7 97.9 97.7 97.7 97.9 Pulse 63 65 57 Resp 16 16 18 B/P (MAP) 129/68 (88) 139/69 (92) 151/82 (105) Pulse Ox 97 97 95 O2 Delivery Room Air Room Air Room Air Room Air Intake and Output 04/09/18 04/09/18 04/10/18 15:00 23:00 07:00 Intake Total 400 ml 690 ml Output Total 0 ml Balance 400 ml 690 ml MUSA MERRITT MD Apr 10, 2018 10:18
[2018-04-10 11:17] VITALS: BP 119/63
--- NOTE | 2018-04-10 11:34 | PDOC ---
Subjective: Subjective: Feeling fine, doesn't know where he is. Objective: Objective: Reviewed w/ RN - possible DC today, hasn't stooled. Vital Signs: Vital Signs Date Time Temp Pulse Resp B/P (MAP) Pulse Ox O2 Delivery O2 Flow Rate FiO2 04/10/18 11:17 97.9 56 20 119/63 (81) 100 Room Air 97.9 Labs: Laboratory Tests Test 04/09/18 17:35 04/10/18 04:00 Sodium Level 143 mmol/L Potassium Level 3.1 mmol/L Chloride Level 109 mmol/L Carbon Dioxide Level 32 mmol/L Anion Gap 2 Blood Urea Nitrogen 8 mg/dL Creatinine 0.9 mg/dL Estimated GFR (Cockcroft-Gault) 80.8 Glucose Level 97 mg/dL Calcium Level 8.4 mg/dL White Blood Count 4.2 x10^3/uL Red Blood Count 3.64 x10^6/uL Hemoglobin 11.8 g/dL Hematocrit 34.3 % Mean Corpuscular Volume 94 fL Mean Corpuscular Hemoglobin 33 pg Mean Corpuscular Hemoglobin Concent 34 g/dL Red Cell Distribution Width 14.5 % Platelet Count 64 x10^3/uL Neutrophils (%) (Auto) 50 % Lymphocytes (%) (Auto) 37 % Monocytes (%) (Auto) 11 % Eosinophils (%) (Auto) 3 % Basophils (%) (Auto) 0 % Neutrophils # (Auto) 2.1 x10^3uL Lymphocytes # (Auto) 1.5 x10^3/uL Monocytes # (Auto) 0.4 x10^3/uL Eosinophils # (Auto) 0.1 x10^3/uL Basophils # (Auto) 0.0 x10^3/uL urine and blood cx neg PE: GEN: NAD, watching tv LUNGS: clear, room air HEART: RRR ABD: S/ND/NT NEURO/PSYCH: confused A/P: Dementia and dysphagia - stable Hyperammonemia - better (checked 04/09) Constipation -- H/o constipation - no stools since admission despite lactulose, etc. - try another dose today. RADHA DOMÍNGUEZ Apr 10, 2018 11:34
[2018-04-10] MEDS ORDERED: POTASSIUM CHLORIDE 20 MEQ TABLET.ER. PO ONE (11:45)
[2018-04-10 15:03] VITALS: BP 164/84
[2018-04-10 19:15] VITALS: BP 144/71
[2018-04-10] MEDS: ATORVASTATIN CALCIUM 40 MG TABLET. PO SCH (20:44)
[2018-04-10] MEDS: MIRTAZAPINE 7.5 MG TABLET. PO SCH (20:44)
[2018-04-10 23:15] VITALS: BP 145/72
[2018-04-11 03:15] VITALS: BP 159/84
[2018-04-11 05:05] LABS: BASO % 1 % (0-3); EOS # 0.1 x10^3/uL (0.0-0.7); EOS % 3 % (0-3); HEMATOCRIT 34.6 % (39.0-53.0); HEMOGLOBIN 12.1 g/dL (13.0-17.5); LYMPH # 1.6 x10^3/uL (1.0-4.8); LYMPH % 37 % (24-48); MEAN CORPUSCULAR HEMOGLOBIN 33 pg (25-35); MEAN CORPUSCULAR HGB CONC 35 g/dL (31-37); MEAN CORPUSCULAR VOLUME 94 fL (79-100); MONO # 0.4 x10^3/uL (0.0-1.1); MONO % 10 % (0-9); NEUT # 2.1 x10^3uL (1.8-7.7); NEUT % 49 % (31-73); PLATELET COUNT 75 x10^3/uL (140-400); RED BLOOD COUNT 3.68 x10^6/uL (4.30-5.70); RED CELL DISTRIBUTION WIDTH 14.8 % (11.5-14.5); WHITE BLOOD COUNT 4.3 x10^3/uL (4.0-11.0)
[2018-04-11 05:55] LABS: CALCIUM 8.5 mg/dL (8.5-10.1); GFR 71.5; POTASSIUM 3.5 mmol/L (3.5-5.1)
[2018-04-11 07:00] VITALS: BP 139/68
[2018-04-11] MEDS: CYANOCOBALAMIN (VITAMIN B-12) 1,000 MCG TABLET. PO SCH (08:35)
[2018-04-11] MEDS: POTASSIUM CHLORIDE 20 MEQ TABLET.ER. PO SCH (08:36)
[2018-04-11] MEDS: PANTOPRAZOLE 40 MG TABLET.DR. PO SCH (08:36)
[2018-04-11] MEDS: MEMANTINE 10 MG TABLET. PO SCH ×2 (08:37→21:19)
[2018-04-11] MEDS: ASPIRIN ENTERIC COATED 81 MG TABLET.DR. PO SCH (08:37)
[2018-04-11] MEDS: FERROUS SULFATE 325 MG TABLET. PO SCH (08:37)
[2018-04-11] MEDS: CHOLECALCIFEROL (VITAMIN D3) 1,000 UNIT TABLET PO SCH (08:38)
[2018-04-11] MEDS: BISACODYL 5 MG TABLET.DR. PO SCH (08:39)
[2018-04-11] MEDS: DOCUSATE SODIUM 100 MG CAPSULE. PO SCH (08:39)
[2018-04-11] MEDS: ENOXAPARIN 40 MG/0.4 ML SYRINGE. SQ SCH ×2 (08:39→09:00)
[2018-04-11] MEDS: POLYETHYLENE GLYCOL 3350 17 GM PACKET. PO SCH (08:40)
[2018-04-11] MEDS: LACTULOSE 20 GM/30 ML SOLUTION. PO SCH ×3 (08:40→21:21)
[2018-04-11] MEDS: SERTRALINE 25 MG TABLET. PO SCH (08:42)
[2018-04-11 10:00] VITALS: BP_SYST 86; BP_SYST 91; BP_DIAS 44; BP_DIAS 50
--- NOTE | 2018-04-11 13:00 | PDOC ---
Subjective: Subjective: "Where's my ?" Objective: Objective: RN says not discharging because ammonia still elevated. Large stool yesterday. Vital Signs: Vital Signs Date Time Temp Pulse Resp B/P (MAP) Pulse Ox O2 Delivery O2 Flow Rate FiO2 04/11/18 10:00 96.6 51 24 91/50 (64) 98 Room Air 96.6 86/44 (58) Labs: Laboratory Tests Test 04/11/18 04:45 04/11/18 10:50 White Blood Count 4.3 x10^3/uL Red Blood Count 3.68 x10^6/uL Hemoglobin 12.1 g/dL Hematocrit 34.6 % Mean Corpuscular Volume 94 fL Mean Corpuscular Hemoglobin 33 pg Mean Corpuscular Hemoglobin Concent 35 g/dL Red Cell Distribution Width 14.8 % Platelet Count 75 x10^3/uL Neutrophils (%) (Auto) 49 % Lymphocytes (%) (Auto) 37 % Monocytes (%) (Auto) 10 % Eosinophils (%) (Auto) 3 % Basophils (%) (Auto) 1 % Neutrophils # (Auto) 2.1 x10^3uL Lymphocytes # (Auto) 1.6 x10^3/uL Monocytes # (Auto) 0.4 x10^3/uL Eosinophils # (Auto) 0.1 x10^3/uL Basophils # (Auto) 0.0 x10^3/uL Sodium Level 144 mmol/L Potassium Level 3.5 mmol/L Chloride Level 112 mmol/L Carbon Dioxide Level 29 mmol/L Anion Gap 3 Blood Urea Nitrogen 10 mg/dL Creatinine 1.0 mg/dL Estimated GFR (Cockcroft-Gault) 71.5 Glucose Level 87 mg/dL Calcium Level 8.5 mg/dL Ammonia 59 mcmol/L PE: GEN: NAD, up to chair LUNGS: room air HEART: RRR ABD: S/ND/NT NEURO/PSYCH: confused A/P: Hyperammonemia - 60 today, no h/o liver disease, cultures neg, stooling w/ lactulose -- DC held due to elevated ammonia apparently. I believe he is at baseline mental status w/ h/o dementia. Any additional recs per Dr. Cantrell. RADHA DOMÍNGUEZ Apr 11, 2018 13:00 TERESITA CANTRELL MD Apr 11, 2018 13:42
[2018-04-11 19:15] VITALS: BP 171/81
[2018-04-11] MEDS: ATORVASTATIN CALCIUM 40 MG TABLET. PO SCH (21:18)
[2018-04-11] MEDS: MIRTAZAPINE 7.5 MG TABLET. PO SCH (21:19)
[2018-04-11 23:03] LABS: BILIRUBIN,URINE NEGATIVE (NEG); CLARITY,URINE CLEAR; COLOR,URINE YELLOW; NITRITE,URINE NEGATIVE (NEG); PROTEIN,URINE NEGATIVE (NEG-TRACE)
[2018-04-11 23:11] LABS: BACTERIA,URINE FEW /HPF (0-FEW); SQUAMOUS EPITHELIAL CELL,UR OCC /LPF
[2018-04-11 23:40] VITALS: BP 114/63
[2018-04-12 03:12] VITALS: BP 140/69
[2018-04-12 04:56] LABS: BASO % 0 % (0-3); EOS # 0.1 x10^3/uL (0.0-0.7); EOS % 3 % (0-3); HEMOGLOBIN 11.9 g/dL (13.0-17.5); LYMPH # 1.6 x10^3/uL (1.0-4.8); LYMPH % 35 % (24-48); MEAN CORPUSCULAR HEMOGLOBIN 33 pg (25-35); MEAN CORPUSCULAR HGB CONC 35 g/dL (31-37); MEAN CORPUSCULAR VOLUME 93 fL (79-100); MONO # 0.5 x10^3/uL (0.0-1.1); MONO % 11 % (0-9); NEUT # 2.4 x10^3uL (1.8-7.7); NEUT % 51 % (31-73); PLATELET COUNT 80 x10^3/uL (140-400); RED BLOOD COUNT 3.65 x10^6/uL (4.30-5.70); RED CELL DISTRIBUTION WIDTH 14.5 % (11.5-14.5); WHITE BLOOD COUNT 4.7 x10^3/uL (4.0-11.0)
[2018-04-12 05:07] LABS: CALCIUM 8.4 mg/dL (8.5-10.1); GFR 71.5; POTASSIUM 3.2 mmol/L (3.5-5.1)
[2018-04-12 07:00] VITALS: BP 120/70
[2018-04-12] MEDS: ENOXAPARIN 40 MG/0.4 ML SYRINGE. SQ SCH (09:00)
[2018-04-12] MEDS: POLYETHYLENE GLYCOL 3350 17 GM PACKET. PO SCH (09:18)
[2018-04-12] MEDS: LACTULOSE 20 GM/30 ML SOLUTION. PO SCH ×3 (09:19→20:39)
[2018-04-12] MEDS: POTASSIUM CHLORIDE 20 MEQ TABLET.ER. PO SCH (09:22)
[2018-04-12] MEDS: CYANOCOBALAMIN (VITAMIN B-12) 1,000 MCG TABLET. PO SCH (09:23)
[2018-04-12] MEDS: SERTRALINE 25 MG TABLET. PO SCH (09:23)
[2018-04-12] MEDS: PANTOPRAZOLE 40 MG TABLET.DR. PO SCH (09:23)
[2018-04-12] MEDS: BISACODYL 5 MG TABLET.DR. PO SCH (09:23)
[2018-04-12] MEDS: DOCUSATE SODIUM 100 MG CAPSULE. PO SCH (09:23)
[2018-04-12] MEDS: FERROUS SULFATE 325 MG TABLET. PO SCH (09:23)
[2018-04-12] MEDS: CHOLECALCIFEROL (VITAMIN D3) 1,000 UNIT TABLET PO SCH (09:24)
[2018-04-12] MEDS: MEMANTINE 10 MG TABLET. PO SCH ×2 (09:24→20:39)
[2018-04-12] MEDS: ASPIRIN ENTERIC COATED 81 MG TABLET.DR. PO SCH (09:24)
[2018-04-12 11:00] VITALS: BP 124/52
--- NOTE | 2018-04-12 11:24 | PDOC ---
PROGRESS NOTES Chief Complaint Chief Complaint acute metabolic encephalopathy, on chronic dementia heat stroke, fever, on admit, better, sunburn residual elevated ammonia, elevated ammonia- no prior history of liver disease better w/ lactulose, GI following, US neg, acute vasomotor nephropathy with dehydration, cont IV fluid mod protein-caloric malnutrition hypokalemia, replete elevated ammonia, recheck today History of Present Illness History of Present Illness plan to send back to his memory care unit when k ok cont the Lactulose daily for mild constipation and elevated ammonia on admit more alert and talkative appetite fair ua today bmp in am serum ammonia today Vitals Vitals Vital Signs Date Time Temp Pulse Resp B/P (MAP) Pulse Ox O2 Delivery O2 Flow Rate FiO2 04/12/18 11:00 95.5 64 20 124/52 (76) 97 Room Air 95.5 Physical Exam General: Alert, Cooperative, No acute distress, Other (confused, thinks he is at the bank) Heart: Regular rate, Normal S1, Normal S2, No murmurs Lungs: Clear Abdomen: Normal bowel sounds, Soft, No tenderness, No hepatosplenomegaly, No masses Extremities: No clubbing, No cyanosis, No edema Skin: Other (chronic eczema/ scaling face) Labs LABS Laboratory Tests Test 04/11/18 22:41 04/12/18 03:40 Urine Collection Type Unknown Urine Color Yellow Urine Clarity Clear Urine pH 8.0 Urine Specific [place] 1.010 Urine Protein Negative mg/dL (NEG-TRACE) Urine Glucose (UA) Negative mg/dL (NEG) Urine Ketones (Stick) Negative mg/dL (NEG) Urine Blood Moderate (NEG) Urine Nitrite Negative (NEG) Urine Bilirubin Negative (NEG) Urine Urobilinogen Dipstick 2.0 mg/dL (0.2 mg/dL) Urine Leukocyte Esterase Trace (NEG) Urine RBC 6-10 /HPF (0-2) Urine WBC 1-4 /HPF (0-4) Urine Squamous Epithelial Cells Occ /LPF Urine Bacteria Few /HPF (0-FEW) Urine Mucus Slight /LPF White Blood Count 4.7 x10^3/uL (4.0-11.0) Red Blood Count 3.65 x10^6/uL (4.30-5.70) Hemoglobin 11.9 g/dL (13.0-17.5) Hematocrit 34.0 % (39.0-53.0) Mean Corpuscular Volume 93 fL (79-100) Mean Corpuscular Hemoglobin 33 pg (25-35) Mean Corpuscular Hemoglobin Concent 35 g/dL (31-37) Red Cell Distribution Width 14.5 % (11.5-14.5) Platelet Count 80 x10^3/uL (140-400) Neutrophils (%) (Auto) 51 % (31-73) Lymphocytes (%) (Auto) 35 % (24-48) Monocytes (%) (Auto) 11 % (0-9) Eosinophils (%) (Auto) 3 % (0-3) Basophils (%) (Auto) 0 % (0-3) Neutrophils # (Auto) 2.4 x10^3uL (1.8-7.7) Lymphocytes # (Auto) 1.6 x10^3/uL (1.0-4.8) Monocytes # (Auto) 0.5 x10^3/uL (0.0-1.1) Eosinophils # (Auto) 0.1 x10^3/uL (0.0-0.7) Basophils # (Auto) 0.0 x10^3/uL (0.0-0.2) Sodium Level 145 mmol/L (136-145) Potassium Level 3.2 mmol/L (3.5-5.1) Chloride Level 111 mmol/L (98-107) Carbon Dioxide Level 29 mmol/L (21-32) Anion Gap 5 (6-14) Blood Urea Nitrogen 9 mg/dL (8-26) Creatinine 1.0 mg/dL (0.7-1.3) Estimated GFR (Cockcroft-Gault) 71.5 Glucose Level 96 mg/dL (70-99) Calcium Level 8.4 mg/dL (8.5-10.1) Assessment and Plan Assessmemt and Plan Problems Medical Problems: (1) Heat exhaustion Status: Acute Comment Review of Relevant I have reviewed the following items althea (where applicable) has been applied. Labs Laboratory Tests Test 04/10/18 11:50 04/11/18 04:45 04/11/18 10:50 04/11/18 22:41 Ammonia 54 mcmol/L (11-34) 59 mcmol/L (11-34) White Blood Count 4.3 x10^3/uL (4.0-11.0) Red Blood Count 3.68 x10^6/uL (4.30-5.70) Hemoglobin 12.1 g/dL (13.0-17.5) Hematocrit 34.6 % (39.0-53.0) Mean Corpuscular Volume 94 fL (79-100) Mean Corpuscular Hemoglobin 33 pg (25-35) Mean Corpuscular Hemoglobin Concent 35 g/dL (31-37) Red Cell Distribution Width 14.8 % (11.5-14.5) Platelet Count 75 x10^3/uL (140-400) Neutrophils (%) (Auto) 49 % (31-73) Lymphocytes (%) (Auto) 37 % (24-48) Monocytes (%) (Auto) 10 % (0-9) Eosinophils (%) (Auto) 3 % (0-3) Basophils (%) (Auto) 1 % (0-3) Neutrophils # (Auto) 2.1 x10^3uL (1.8-7.7) Lymphocytes # (Auto) 1.6 x10^3/uL (1.0-4.8) Monocytes # (Auto) 0.4 x10^3/uL (0.0-1.1) Eosinophils # (Auto) 0.1 x10^3/uL (0.0-0.7) Basophils # (Auto) 0.0 x10^3/uL (0.0-0.2) Sodium Level 144 mmol/L (136-145) Potassium Level 3.5 mmol/L (3.5-5.1) Chloride Level 112 mmol/L (98-107) Carbon Dioxide Level 29 mmol/L (21-32) Anion Gap 3 (6-14) Blood Urea Nitrogen 10 mg/dL (8-26) Creatinine 1.0 mg/dL (0.7-1.3) Estimated GFR (Cockcroft-Gault) 71.5 Glucose Level 87 mg/dL (70-99) Calcium Level 8.5 mg/dL (8.5-10.1) Urine Collection Type Unknown Urine Color Yellow Urine Clarity Clear Urine pH 8.0 Urine Specific [place] 1.010 Urine Protein Negative mg/dL (NEG-TRACE) Urine Glucose (UA) Negative mg/dL (NEG) Urine Ketones (Stick) Negative mg/dL (NEG) Urine Blood Moderate (NEG) Urine Nitrite Negative (NEG) Urine Bilirubin Negative (NEG) Urine Urobilinogen Dipstick 2.0 mg/dL (0.2 mg/dL) Urine Leukocyte Esterase Trace (NEG) Urine RBC 6-10 /HPF (0-2) Urine WBC 1-4 /HPF (0-4) Urine Squamous Epithelial Cells Occ /LPF Urine Bacteria Few /HPF (0-FEW) Urine Mucus Slight /LPF Test 04/12/18 03:40 White Blood Count 4.7 x10^3/uL (4.0-11.0) Red Blood Count 3.65 x10^6/uL (4.30-5.70) Hemoglobin 11.9 g/dL (13.0-17.5) Hematocrit 34.0 % (39.0-53.0) Mean Corpuscular Volume 93 fL (79-100) Mean Corpuscular Hemoglobin 33 pg (25-35) Mean Corpuscular Hemoglobin Concent 35 g/dL (31-37) Red Cell Distribution Width 14.5 % (11.5-14.5) Platelet Count 80 x10^3/uL (140-400) Neutrophils (%) (Auto) 51 % (31-73) Lymphocytes (%) (Auto) 35 % (24-48) Monocytes (%) (Auto) 11 % (0-9) Eosinophils (%) (Auto) 3 % (0-3) Basophils (%) (Auto) 0 % (0-3) Neutrophils # (Auto) 2.4 x10^3uL (1.8-7.7) Lymphocytes # (Auto) 1.6 x10^3/uL (1.0-4.8) Monocytes # (Auto) 0.5 x10^3/uL (0.0-1.1) Eosinophils # (Auto) 0.1 x10^3/uL (0.0-0.7) Basophils # (Auto) 0.0 x10^3/uL (0.0-0.2) Sodium Level 145 mmol/L (136-145) Potassium Level 3.2 mmol/L (3.5-5.1) Chloride Level 111 mmol/L (98-107) Carbon Dioxide Level 29 mmol/L (21-32) Anion Gap 5 (6-14) Blood Urea Nitrogen 9 mg/dL (8-26) Creatinine 1.0 mg/dL (0.7-1.3) Estimated GFR (Cockcroft-Gault) 71.5 Glucose Level 96 mg/dL (70-99) Calcium Level 8.4 mg/dL (8.5-10.1) Laboratory Tests Test 04/11/18 22:41 04/12/18 03:40 Urine Collection Type Unknown Urine Color Yellow Urine Clarity Clear Urine pH 8.0 Urine Specific [place] 1.010 Urine Protein Negative mg/dL (NEG-TRACE) Urine Glucose (UA) Negative mg/dL (NEG) Urine Ketones (Stick) Negative mg/dL (NEG) Urine Blood Moderate (NEG) Urine Nitrite Negative (NEG) Urine Bilirubin Negative (NEG) Urine Urobilinogen Dipstick 2.0 mg/dL (0.2 mg/dL) Urine Leukocyte Esterase Trace (NEG) Urine RBC 6-10 /HPF (0-2) Urine WBC 1-4 /HPF (0-4) Urine Squamous Epithelial Cells Occ /LPF Urine Bacteria Few /HPF (0-FEW) Urine Mucus Slight /LPF White Blood Count 4.7 x10^3/uL (4.0-11.0) Red Blood Count 3.65 x10^6/uL (4.30-5.70) Hemoglobin 11.9 g/dL (13.0-17.5) Hematocrit 34.0 % (39.0-53.0) Mean Corpuscular Volume 93 fL (79-100) Mean Corpuscular Hemoglobin 33 pg (25-35) Mean Corpuscular Hemoglobin Concent 35 g/dL (31-37) Red Cell Distribution Width 14.5 % (11.5-14.5) Platelet Count 80 x10^3/uL (140-400) Neutrophils (%) (Auto) 51 % (31-73) Lymphocytes (%) (Auto) 35 % (24-48) Monocytes (%) (Auto) 11 % (0-9) Eosinophils (%) (Auto) 3 % (0-3) Basophils (%) (Auto) 0 % (0-3) Neutrophils # (Auto) 2.4 x10^3uL (1.8-7.7) Lymphocytes # (Auto) 1.6 x10^3/uL (1.0-4.8) Monocytes # (Auto) 0.5 x10^3/uL (0.0-1.1) Eosinophils # (Auto) 0.1 x10^3/uL (0.0-0.7) Basophils # (Auto) 0.0 x10^3/uL (0.0-0.2) Sodium Level 145 mmol/L (136-145) Potassium Level 3.2 mmol/L (3.5-5.1) Chloride Level 111 mmol/L (98-107) Carbon Dioxide Level 29 mmol/L (21-32) Anion Gap 5 (6-14) Blood Urea Nitrogen 9 mg/dL (8-26) Creatinine 1.0 mg/dL (0.7-1.3) Estimated GFR (Cockcroft-Gault) 71.5 Glucose Level 96 mg/dL (70-99) Calcium Level 8.4 mg/dL (8.5-10.1) Microbiology 04/06/18 Blood Culture - Final, Complete NO GROWTH AFTER 5 DAYS 04/06/18 Urine Culture - Final, Complete 04/06/18 Urine Culture Result 1 (NAJMA) - Final, Complete Medications Current Medications Sodium Chloride 1,000 ml @ 1,000 mls/hr 1X ONCE IV Last administered on at 18:42; Start 04/06/18 at 17:45; Stop 04/06/18 at 18:44; Status DC Sodium Chloride 1,000 ml @ 1,000 mls/hr 1X ONCE IV Last administered on at 18:42; Start 04/06/18 at 17:45; Stop 04/06/18 at 18:44; Status DC Ondansetron HCl (Zofran) 4 mg PRN Q8HRS PRN IV NAUSEA/VOMITING; Start 04/06/18 at 20:45; Stop 04/07/18 at 20:44; Status DC Sodium Chloride 1,000 ml @ 125 mls/hr Q8H IV Last administered on 04/07/18at 12 :43; Start 04/06/18 at 20:43; Stop 04/07/18 at 20:42; Status DC Acetaminophen (Tylenol) 650 mg PRN Q4HRS PRN PO FEVER; Start 04/06/18 at 20:45 ; Stop 04/07/18 at 20:44; Status DC Lactulose (Lactulose) 20 gm BID PO Last administered on 04/10/18 08:10; Start 04/07/18 at 09:00; Stop 04/10/18 at 11:35; Status DC Enoxaparin Sodium (Lovenox Per Pharmacy Prophylaxis Dosing) 1 each PRN DAILY PRN MC SEE COMMENTS; Start 04/07/18 at 09:00 Phytonadione (Vitamin K Ampule) 5 mg 1X ONCE SQ Last administered on at 10:31; Start 04/07/18 at 09:00; Stop 04/07/18 at 09:01; Status DC Potassium Chloride (Klor-Con) 40 meq 1X ONCE PO Last administered on at 10:30; Start 04/07/18 at 09:00; Stop 04/07/18 at 09:01; Status DC Enoxaparin Sodium (Lovenox 40mg Syringe) 40 mg Q24H SQ Last administered on 08:23; Start 04/07/18 at 09:00 Aspirin (Ecotrin) 81 mg DAILY PO Last administered on 04/12/18 09:24; Start at 09:00 Atorvastatin Calcium (Lipitor) 40 mg QHS PO Last administered on 04/11/18 21: 18; Start 04/07/18 at 21:00 Bisacodyl (Dulcolax Tab) 5 mg DAILY PO Last administered on 04/12/18 09:23; Start 04/07/18 at 09:00 Vitamin D (Vitamin D3) 2,000 unit DAILY PO Last administered on 04/12/18 09:24 ; Start 04/07/18 at 09:00 Cyanocobalamin (Vitamin B-12) 1,000 mcg DAILY PO Last administered on 09:23; Start 04/07/18 at 09:00 Docusate Sodium (Colace) 100 mg DAILY PO Last administered on 04/12/18 09:23; Start 04/07/18 at 09:00 Ferrous Sulfate (Feosol) 325 mg DAILY PO Last administered on 04/12/18 09:23; Start 04/07/18 at 09:00 Memantine (Namenda) 10 mg BID PO Last administered on 04/12/18 09:24; Start at 10:00 Mirtazapine (Remeron) 7.5 mg QHS PO Last administered on 04/11/18at 21:19; Start 04/07/18 at 21:00 Pantoprazole Sodium (Protonix) 40 mg DAILYAC PO Last administered on 04/12/18at 09:23; Start 04/07/18 at 10:00 Polyethylene Glycol (miraLAX PACKET) 17 gm DAILY PO Last administered on 09:18; Start 04/07/18 at 10:00 Sertraline HCl (Zoloft) 25 mg DAILY PO Last administered on 04/12/18at 09:23; Start 04/07/18 at 10:00 Non-Formulary Medication (Sulfacetamide Sodium/Sulfur (Sod Sulfacetamide-Sulfur Lotn)) 25 gm DAILY TP ; Start 04/07/18 at 09:00; Status UNV Potassium Chloride (Klor-Con) 40 meq 1X ONCE PO Last administered on at 16:21; Start 04/08/18 at 15:15; Stop 04/08/18 at 15:16; Status DC Potassium Chloride (Klor-Con) 20 meq DAILYWBKFT PO Last administered on at 09:22; Start 04/09/18 at 08:00 Potassium Chloride (Klor-Con) 40 meq 1X ONCE PO Last administered on at 17:30; Start 04/09/18 at 17:30; Stop 04/09/18 at 17:31; Status DC Potassium Chloride (Klor-Con) 40 meq 1X ONCE PO Last administered on at 13:11; Start 04/10/18 at 11:45; Stop 04/10/18 at 11:46; Status DC Lactulose (Lactulose) 20 gm TID PO Last administered on 04/10/18at 13:21; Start 04/10/18 at 14:00; Stop 04/11/18 at 12:48; Status DC Lactulose (Lactulose) 30 gm TID PO Last administered on 04/12/18at 09:19; Start 04/11/18 at 14:00 Active Scripts Active Reported Namenda Xr (Memantine Hcl) 28 Mg Cap.spr.24 28 Mg PO HS Zoloft (Sertraline Hcl) 25 Mg Tablet 1 Tab PO DAILY Remeron (Mirtazapine) 15 Mg Tablet 0.5 Tab PO QHS Sod Sulfacetamide-Sulfur Lotn (Sulfacetamide Sodium/Sulfur) 25 Gm Lotion 25 Gm TP DAILY apply to dry skin topically daily Multivitamins With Minerals (Multivitamin With Minerals) 1 Each Tablet 1 Each PO Vitamin B-12 (Cyanocobalamin (Vitamin B-12)) 1,000 Mcg Tablet 1 Tab PO DAILY Ferrous Sulfate 325 Mg Tablet 1 Tab PO DAILY Vitamin D3 (Cholecalciferol (Vitamin D3)) 1,000 Unit Tablet 2 Tab PO DAILY Magnesium Oxide 250 Mg Tablet 250 Mg PO Omeprazole 20 Mg Capsule.dr 1 Cap PO DAILY Aspirin Ec (Aspirin) 81 Mg Tablet.dr 1 Tab PO DAILY Docusate Sodium 100 Mg Capsule 1 Cap PO DAILY Calcium 500-Vit D3 600 Tablet (Calcium Carbonate/Vitamin D3) 1 Each Tablet 1 Each PO Miralax (Polyethylene Glycol 3350) 17 Gm Powd.pack 1 Packet PO DAILY Dulcolax (Bisacodyl) 5 Mg Tablet. 1 Tab PO UD Krill Oil 500 mg Softgel (Krill/Om-3/Dha/Epa/Phospho/Ast) 1 Each Capsule 1 Each PO Atorvastatin Calcium 40 Mg Tablet 1 Tab PO DAILY Vitals/I & O Vital Sign - Last 24 Hours 04/11/18 04/11/18 04/11/18 04/12/18 19:15 20:05 23:40 03:12 Temp 98.6 97.9 97.3 98.6 97.9 97.3 Pulse 60 65 66 Resp 18 16 18 B/P (MAP) 171/81 (111) 114/63 (80) 140/69 (92) Pulse Ox 100 96 99 O2 Delivery Room Air Room Air Room Air Room Air 04/12/18 04/12/18 04/12/18 07:00 08:00 11:00 Temp 95.9 95.5 95.9 95.5 Pulse 58 64 Resp 16 20 B/P (MAP) 120/70 (87) 124/52 (76) Pulse Ox 96 97 O2 Delivery Room Air Room Air Room Air Intake and Output 04/11/18 04/11/18 04/12/18 15:00 23:00 07:00 Intake Total 240 ml 150 ml 870 ml Balance 240 ml 150 ml 870 ml MUSA MERRITT MD Apr 12, 2018 11:24
[2018-04-12] MEDS ORDERED: POTASSIUM CHLORIDE 20 MEQ TABLET.ER. PO ONE (11:30)
--- NOTE | 2018-04-12 11:45 | PDOC ---
Objective: Objective: RN says DC held until ammonia and potassium straightened out. No stool yesterday or today. Vital Signs: Vital Signs Date Time Temp Pulse Resp B/P (MAP) Pulse Ox O2 Delivery O2 Flow Rate FiO2 04/12/18 11:00 95.5 64 20 124/52 (76) 97 Room Air 95.5 PE: GEN: NAD, watching tv LUNGS: CTAB HEART: RRR ABD: S/ND/NT NEURO/PSYCH: confused, smiling A/P: Hyperammonemia Dementia -- Unclear cause for mildly elevated ammonia. H/o constipation, so okay to continue lactulose. RADHA DOMÍNGUEZ Apr 12, 2018 11:45
[2018-04-12 15:00] VITALS: BP 135/69
[2018-04-12 19:55] VITALS: BP 130/68
[2018-04-12] MEDS: ATORVASTATIN CALCIUM 40 MG TABLET. PO SCH (20:39)
[2018-04-12] MEDS: MIRTAZAPINE 7.5 MG TABLET. PO SCH (20:39)
[2018-04-13 03:18] VITALS: BP 136/70
[2018-04-13 06:19] LABS: CALCIUM 8.4 mg/dL (8.5-10.1); GFR 71.5; POTASSIUM 3.6 mmol/L (3.5-5.1)
[2018-04-13 07:10] VITALS: BP 155/81
[2018-04-13] MEDS: POLYETHYLENE GLYCOL 3350 17 GM PACKET. PO SCH (09:16)
[2018-04-13] MEDS: LACTULOSE 20 GM/30 ML SOLUTION. PO SCH (09:16)
[2018-04-13] MEDS: MEMANTINE 10 MG TABLET. PO SCH (09:17)
[2018-04-13] MEDS: BISACODYL 5 MG TABLET.DR. PO SCH (09:18)
[2018-04-13] MEDS: SERTRALINE 25 MG TABLET. PO SCH (09:18)
[2018-04-13] MEDS: ASPIRIN ENTERIC COATED 81 MG TABLET.DR. PO SCH (09:18)
[2018-04-13] MEDS: DOCUSATE SODIUM 100 MG CAPSULE. PO SCH (09:18)
[2018-04-13] MEDS: FERROUS SULFATE 325 MG TABLET. PO SCH (09:18)
[2018-04-13] MEDS: CHOLECALCIFEROL (VITAMIN D3) 1,000 UNIT TABLET PO SCH (09:18)
[2018-04-13] MEDS: CYANOCOBALAMIN (VITAMIN B-12) 1,000 MCG TABLET. PO SCH (09:18)
[2018-04-13] MEDS: PANTOPRAZOLE 40 MG TABLET.DR. PO SCH (09:18)
[2018-04-13] MEDS: POTASSIUM CHLORIDE 20 MEQ TABLET.ER. PO SCH (09:19)
[2018-04-13] MEDS: ENOXAPARIN 40 MG/0.4 ML SYRINGE. SQ SCH (09:20)
--- NOTE | 2018-04-13 10:23 | PDOC ---
Subjective: Subjective: No complaints. Objective: Vital Signs: Vital Signs Date Time Temp Pulse Resp B/P (MAP) Pulse Ox O2 Delivery O2 Flow Rate FiO2 04/13/18 08:00 Room Air 04/13/18 07:10 97.5 52 16 155/81 (105) 94 97.5 Labs: Laboratory Tests Test 04/12/18 11:30 04/12/18 14:50 04/13/18 05:31 Ammonia 51 mcmol/L 31 mcmol/L Prothrombin Time 16.0 SEC Prothromb Time International Ratio 1.3 Sodium Level 143 mmol/L Potassium Level 3.6 mmol/L Chloride Level 111 mmol/L Carbon Dioxide Level 27 mmol/L Anion Gap 5 Blood Urea Nitrogen 9 mg/dL Creatinine 1.0 mg/dL Estimated GFR (Cockcroft-Gault) 71.5 Glucose Level 82 mg/dL Calcium Level 8.4 mg/dL PE: GEN: NAD, eating breakfast and watching tv LUNGS: room air ABD: BS+, soft, non-tender NEURO/PSYCH: pleasantly confused A/P: Hyperammonemia - resolved Constipation -- DC per primary. Continue lactulose for constipation No further GI workup recommended for elevated ammonia w/ advance age and dementia. RADHA DOMÍNGUEZ Apr 13, 2018 10:23
[2018-04-13 11:26] VITALS: BP 126/70
--- NOTE | 2018-04-13 12:44 | PDOC3 ---
Discharge Summary Visit Information Date of Admission: Apr 07, 2018 Date of Discharge: Apr 13, 2018 Admitting Diagnosis Comment: acute metabolic encephalopathy, on chronic dementia heat stroke, fever, on admit, better, sunburn residual elevated ammonia, elevated ammonia- no prior history of liver disease better w/ lactulose, GI following, US neg, acute vasomotor nephropathy with dehydration, cont IV fluid mod protein-caloric malnutrition Final Diagnosis Problems Medical Problems: (1) Heat exhaustion Status: Acute Brief Hospital Course Allergies Allergies Coded Allergies Type Severity Reaction Last Updated Verified donepezil Allergy Intermediate 04/12/18 Yes Vital Signs Vital Signs Date Time Temp Pulse Resp B/P (MAP) Pulse Ox O2 Delivery O2 Flow Rate FiO2 04/13/18 11:26 97.6 65 18 126/70 (88) 98 Room Air 97.6 Lab Results Laboratory Tests Test 04/11/18 22:41 04/12/18 03:40 04/12/18 11:30 04/12/18 14:50 Urine Collection Type Unknown Urine Color Yellow Urine Clarity Clear Urine pH 8.0 Urine Specific [place] 1.010 Urine Protein Negative mg/dL (NEG-TRACE) Urine Glucose (UA) Negative mg/dL (NEG) Urine Ketones (Stick) Negative mg/dL (NEG) Urine Blood Moderate (NEG) Urine Nitrite Negative (NEG) Urine Bilirubin Negative (NEG) Urine Urobilinogen Dipstick 2.0 mg/dL (0.2 mg/dL) Urine Leukocyte Esterase Trace (NEG) Urine RBC 6-10 /HPF (0-2) Urine WBC 1-4 /HPF (0-4) Urine Squamous Epithelial Cells Occ /LPF Urine Bacteria Few /HPF (0-FEW) Urine Mucus Slight /LPF White Blood Count 4.7 x10^3/uL (4.0-11.0) Red Blood Count 3.65 x10^6/uL (4.30-5.70) Hemoglobin 11.9 g/dL (13.0-17.5) Hematocrit 34.0 % (39.0-53.0) Mean Corpuscular Volume 93 fL (79-100) Mean Corpuscular Hemoglobin 33 pg (25-35) Mean Corpuscular Hemoglobin Concent 35 g/dL (31-37) Red Cell Distribution Width 14.5 % (11.5-14.5) Platelet Count 80 x10^3/uL (140-400) Neutrophils (%) (Auto) 51 % (31-73) Lymphocytes (%) (Auto) 35 % (24-48) Monocytes (%) (Auto) 11 % (0-9) Eosinophils (%) (Auto) 3 % (0-3) Basophils (%) (Auto) 0 % (0-3) Neutrophils # (Auto) 2.4 x10^3uL (1.8-7.7) Lymphocytes # (Auto) 1.6 x10^3/uL (1.0-4.8) Monocytes # (Auto) 0.5 x10^3/uL (0.0-1.1) Eosinophils # (Auto) 0.1 x10^3/uL (0.0-0.7) Basophils # (Auto) 0.0 x10^3/uL (0.0-0.2) Sodium Level 145 mmol/L (136-145) Potassium Level 3.2 mmol/L (3.5-5.1) Chloride Level 111 mmol/L (98-107) Carbon Dioxide Level 29 mmol/L (21-32) Anion Gap 5 (6-14) Blood Urea Nitrogen 9 mg/dL (8-26) Creatinine 1.0 mg/dL (0.7-1.3) Estimated GFR (Cockcroft-Gault) 71.5 Glucose Level 96 mg/dL (70-99) Calcium Level 8.4 mg/dL (8.5-10.1) Ammonia 51 mcmol/L (11-34) Prothrombin Time 16.0 SEC (11.7-14.0) Prothromb Time International Ratio 1.3 (0.8-1.1) Test 04/13/18 05:31 Sodium Level 143 mmol/L (136-145) Potassium Level 3.6 mmol/L (3.5-5.1) Chloride Level 111 mmol/L (98-107) Carbon Dioxide Level 27 mmol/L (21-32) Anion Gap 5 (6-14) Blood Urea Nitrogen 9 mg/dL (8-26) Creatinine 1.0 mg/dL (0.7-1.3) Estimated GFR (Cockcroft-Gault) 71.5 Glucose Level 82 mg/dL (70-99) Calcium Level 8.4 mg/dL (8.5-10.1) Ammonia 31 mcmol/L (11-34) Laboratory Tests Test 04/12/18 14:50 04/13/18 05:31 Prothrombin Time 16.0 SEC (11.7-14.0) Prothromb Time International Ratio 1.3 (0.8-1.1) Sodium Level 143 mmol/L (136-145) Potassium Level 3.6 mmol/L (3.5-5.1) Chloride Level 111 mmol/L (98-107) Carbon Dioxide Level 27 mmol/L (21-32) Anion Gap 5 (6-14) Blood Urea Nitrogen 9 mg/dL (8-26) Creatinine 1.0 mg/dL (0.7-1.3) Estimated GFR (Cockcroft-Gault) 71.5 Glucose Level 82 mg/dL (70-99) Calcium Level 8.4 mg/dL (8.5-10.1) Ammonia 31 mcmol/L (11-34) Brief Hospital Course Mr. Samayoa is a 83 old white male who was admitted for acute encephalopathy, he was working under the heat, admitted with admitting diagnosis of heat stroke. He does have an element of dementia and a diagnosis of dementia before hand. Slightly elevated ammonia for which GI was consulted. But already on lactulose. Now is back at baseline. Being screened for SNU and has been accepted at [facility]. We will DC today with no change in medications. Advised increase OFI consults performed - neurology, GI Procedure performed none DNR Time spent discharging discharge time greater 30 minutes, greater than 50% coordinating discharge, doing paperwork, I'm seeing the patient first-day today on day of discharge, all past records from previous days of hospitalizations I had to review. Discharge Information Condition at Discharge: Improved, Stable Disposition/Orders: Other (snf) Scheduled Aspirin (Aspirin Ec) 81 Mg Tablet.dr, 1 TAB PO DAILY, #30 Ref 3 (Reported) Entered as Reported by: MATTI ORDAZ on 04/07/186 Last Taken: Unknown Dose on Unknown Date & Time Last Action: Continued on 04/07/18857 by ANETTE BUTLER Atorvastatin Calcium (Atorvastatin Calcium) 40 Mg Tablet, 1 TAB PO DAILY, #30 Ref 5 (Reported) Entered as Reported by: MATTI ORDAZ on 04/07/186 Last Taken: Unknown Dose on Unknown Date & Time Last Action: Continued on 04/07/18857 by ANETTE BUTLER Bisacodyl (Dulcolax) 5 Mg Tablet.dr, 1 TAB PO UD, #2 (Reported) Entered as Reported by: MATTI ORDAZ on 04/07/186 Last Taken: Unknown Dose on Unknown Date & Time Last Action: Continued on 04/07/18857 by ANETTE BUTLER Cholecalciferol (Vitamin D3) (Vitamin D3) 1,000 Unit Tablet, 2 TAB PO DAILY, # 30 Ref 5 (Reported) Entered as Reported by: MATTI ORDAZ on 04/07/186 Last Taken: Unknown Dose on Unknown Date & Time Last Action: Continued on 04/07/18857 by ANETTE BUTLER Cyanocobalamin (Vitamin B-12) (Vitamin B-12) 1,000 Mcg Tablet, 1 TAB PO DAILY, # 30 Ref 2 (Reported) Entered as Reported by: MATTI ORDAZ on 04/07/186 Last Taken: Unknown Dose on Unknown Date & Time Last Action: Continued on 04/07/18857 by ANETTE BUTLER Docusate Sodium (Docusate Sodium) 100 Mg Capsule, 1 CAP PO DAILY, #30 (Reported) Entered as Reported by: MATTI ORDAZ on 04/07/186 Last Taken: Unknown Dose on Unknown Date & Time Last Action: Continued on 04/07/18857 by ANETTE BUTLER Ferrous Sulfate (Ferrous Sulfate) 325 Mg Tablet, 1 TAB PO DAILY, #30 Ref 3 ( Reported) Entered as Reported by: MATTI ORDAZ on 04/07/186 Last Taken: Unknown Dose on Unknown Date & Time Last Action: Continued on 04/07/18857 by ANETTE BUTLER Memantine Hcl (Namenda Xr) 28 Mg Cap.spr.24, 28 MG PO HS, (Reported) Entered as Reported by: MATTI ORDAZ on 04/07/1833 Last Taken: Unknown Dose on Unknown Date & Time Last Action: Converted on 04/07/18857 by ANETTE BUTLER Mirtazapine (Remeron) 15 Mg Tablet, 0.5 TAB PO QHS, #30 Ref 1 (Reported) Entered as Reported by: MATTI ORDAZ on 04/07/1833 Last Taken: Unknown Dose on Unknown Date & Time Last Action: Converted on 04/07/18857 by ANETTE BUTLER Omeprazole (Omeprazole) 20 Mg Capsule.dr, 1 CAP PO DAILY, #30 Ref 5 (Reported) Entered as Reported by: MATTI ORDAZ on 04/07/186 Last Taken: Unknown Dose on Unknown Date & Time Last Action: Converted on 04/07/18857 by ANETTE BUTLER Polyethylene Glycol 3350 (Miralax) 17 Gm Powd.pack, 1 PACKET PO DAILY, #30 Ref 3 (Reported) Entered as Reported by: MATTI ORDAZ on 04/07/186 Last Taken: Unknown Dose on Unknown Date & Time Last Action: Converted on 04/07/18857 by ANETTE BUTLER Sertraline Hcl (Zoloft) 25 Mg Tablet, 1 TAB PO DAILY, #30 Ref 2 (Reported) Entered as Reported by: MATTI ORDAZ on 04/07/1833 Last Taken: Unknown Dose on Unknown Date & Time Last Action: Converted on 04/07/18857 by ANETTE BUTLER Sulfacetamide Sodium/Sulfur (Sod Sulfacetamide-Sulfur Lotn) 25 Gm Lotion, 25 GM TP DAILY for acne, (Reported) apply to dry skin topically daily Entered as Reported by: MATTI ORDAZ on 04/07/1833 Last Taken: Unknown Dose on Unknown Date & Time Last Action: Converted on 04/07/18857 by ANETTE BUTLER Miscellaneous Medications Calcium Carbonate/Vitamin D3 (Calcium 500-Vit D3 600 Tablet) 1 Each Tablet, 1 EACH PO, (Reported) Entered as Reported by: MATTI ORDAZ on 04/07/186 Last Taken: Unknown Dose on Unknown Date & Time Last Action: HELD on 04/07 by ANETTE BUTLER Krill/Om-3/Dha/Epa/Phospho/Ast (Krill Oil 500 mg Softgel) 1 Each Capsule, 1 EACH PO, (Reported) Entered as Reported by: MATTI ORDAZ on 04/07/186 Last Taken: Unknown Dose on Unknown Date & Time Last Action: HELD on 04/07 by ANETTE BUTLER Magnesium Oxide (Magnesium Oxide) 250 Mg Tablet, 250 MG PO, (Reported) Entered as Reported by: MATTI ORDAZ on 04/07/186 Last Action: HELD on 04/07/18857 by ANETTE BUTLER Multivitamin With Minerals (Multivitamins With Minerals) 1 Each Tablet, 1 EACH PO, (Reported) Entered as Reported by: MATTI ORDAZ on 04/07/187 Last Taken: Unknown Dose on Unknown Date & Time Last Action: HELD on 04/07 by ALEJANDRINA HUDDLESTON MD Apr 13, 2018 12:44
== END 2018-04-13 14:37 | disposition home or self-care (01) | DRG 682 ==
LOC: ER 17:32 → 6 SOUTH 20:00
PROVIDERS: ADMIT Internal Medicine; ATTEND Internal Medicine
DX: N17.0 Acute kidney failure with tubular necrosis (principal); G93.41 Metabolic encephalopathy; E44.0 Moderate protein-calorie malnutrition; Z66 Do not resuscitate; E86.0 Dehydration; E87.6 Hypokalemia; K59.09 Other constipation; K74.60 Unspecified cirrhosis of liver; R13.10 Dysphagia, unspecified; T67.5XXA Heat exhaustion, unspecified, initial encounter; G30.9 Alzheimer's disease, unspecified; F02.80 Dementia in other diseases classified elsewhere, unspecified severity, without behavioral disturbance, psychotic disturbance, mood disturbance, and anxiety; Z90.49 Acquired absence of other specified parts of digestive tract; Y93.89 Activity, other specified; Y92.89 Other specified places as the place of occurrence of the external cause; Y99.8 Other external cause status; X30.XXXA Exposure to excessive natural heat, initial encounter; Z88.8 Allergy status to other drugs, medicaments and biological substances; Z79.82 Long term (current) use of aspirin; Z79.899 Other long term (current) drug therapy; Z68.25 Body mass index [BMI] 25.0-25.9, adult
CPT/HCPCS: 36415; 36600; 51702; 70450; 71045; 72125; 76705; 80048; 80053; 80307; 81001; 82140; 82550; 82553; 82977; 83605; 83690; 83735; 83880; 84484; 85025; 85610; 85730; 86803; 87040; 87086; 87340; 87641; 93005; 96360; J1650; J3430; J7030; 92526; 92610; 97116; 97530; 97535; 99285-25; G0479